=== PATIENT | male | born 1980 | race Caucasian/White ===

== ENCOUNTER 2022-02-23 12:46 | Observation (INO) | payer MEDICARE, SELFPAY ==
[2022-02-23] VITALS (14 sets, daily range): BP systolic 100–136; BP diastolic 61–88; PULSE 47–78; RESP 12–21; TEMP 36.5–36.7; O2SAT 95–99; BMI 20.3
--- NOTE | 2022-02-23 12:53 | ECG_ITS ---
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 Measurements Intervals [place] Rate: 50 P: 79 AR: 156 QRS: 78 QRSD: 82 T: 78 QT: 428 QTc: 391 Interpretive Statements SINUS BRADYCARDIA No previous ECG available for comparison Electronically Signed On 02-23-2022 18:33:29 CDT by Delvis Fuentes M.D. [id number]
--- NOTE | 2022-02-23 12:53 | XRR_ITS ---
PROCEDURE INFORMATION: Exam: XR Chest Exam date and time: 02/23/2022 1:07 PM Age: 42 years old Clinical indication: Pain; Angina pectoris; Prior surgery; Surgery type: Stents; Additional info: Chest pain TECHNIQUE: Imaging protocol: Radiologic exam of the chest. Views: 1 view. Other technique: Frontal portable upright view of the chest. COMPARISON: No relevant prior studies available. FINDINGS: Tubes, catheters and devices: EKG leads are present overlying the chest. Lungs: Mild pulmonary hyperexpansion. The lungs are otherwise peripherally clear bilaterally. The pulmonary vasculature is normal. Pleural spaces: No pleural effusion. No pneumothorax. Heart/Mediastinum: The heart is normal in size and contour. Bones/joints: No acute abnormality identified. XR/XR chest 1V portable [id number] IMPRESSION: Mild pulmonary hyperexpansion.
--- NOTE | 2022-02-23 12:56 | ED_ITS ---
HPI - Chest Pain General: Chief Complaint: Chest Pain Stated Complaint: CHEST PAIN Time Seen by Provider: 02/23/22 12:48 History of Present Illness: 42-year-old male presents with chest pain. Patient reports that it started yesterday and then worsened throughout the night. He feels like he is got some a set on his chest. These got pain rating to his left arm. Some mild shortness of breath. Patient reports that about 4 years ago he had 2 stents placed. He moved [place] proximally 3 weeks ago. And has not established care. Patient does not currently take any medications. In route EMS provided him aspirin and 3 nitro. He reports his pain went from a 10 to a 3 with a nitro. Associated symptoms: Deny abdominal pain, dyspnea, fever(s), nausea, palpitations or vomiting Review of Systems Const: Denies: fever(s) or chills Eyes: Denies: change in vision or blurry vision ENMT: Denies: throat pain or ear or mastoid pain Card: Reports: chest pain; Denies: palpitations, irregular heart rhythm or lightheadedness Resp: Denies: dyspnea or productive cough GI: Denies: abdominal pain, nausea or vomiting : Denies: flank pain, difficulty urinating or dysuria Musc: Reports: other (Please see HPI) Skin/Breast: Denies: rash or pruritus PFSH ED PFSH: Medical History (Updated 02/23/22 @ 17:31 by Alysha Sousa MD) CAD (coronary artery disease) Physical Exam Const: COMMON NORMALS: no acute distress, patient oriented x3 and no limitations HENMT: COMMON NORMALS: normocephalic, hearing grossly normal bilaterally and moist oral mucous membranes HEAD & SCALP: normocephalic Eye: COMMON NORMALS: Equal, round and reactive pupils present and EOMs intact bilaterally PUPIL: Yes Equal, round and reactive pupils present Resp: COMMON NORMALS: normal respiratory effort, No use of accessory muscles and clear to auscultation bilaterally AUSCULTATION: clear to auscultation rey aterally Cardio: COMMON NORMALS: regular rate and regular rhythm RATE: regular rate RHYTHM: regular rhythm GI: COMMON NORMALS: Normal to inspection, nondistended, normoactive bowel sounds present, Soft to palpation and No hepatosplenomegaly present PALPATION: Yes Soft to palpation and Yes No hepatosplenomegaly present Extremity: COMMON NORMALS: normal to inspection and full ROM Neuro: COMMON NORMALS: patient oriented x3, moves all extremities and no focal motor deficits Psych: COMMON NORMALS: mental status grossly normal, Normal thought process present, cooperative and speech normal SPEECH: Yes normal speech THOUGHT PROCESS: Normal thought process present Course Vital Signs: Vital signs: Vital Signs Temperature 97.7 F 02/23/22 12:50 Pulse Rate 53 L 02/23/22 17:00 Respiratory Rate 16 02/23/22 17:33 Blood Pressure 119/67 02/23/22 17:00 Pulse Oximetry 95 02/23/22 17:00 Oxygen Delivery Me thod 02/23/22 17:00 MDM - Chest Pain Medical Decision Making Patient reports that his chest pain is coming and going is very similar to his previous time he needed stents. Discussed with Dr. Underwood who felt he would isrrael efit from admission and stress test in the morning. Discussed with Dr. Sousa who agreed to admission Lab Data : 02/23/22 13:00 02/23/22 13:00 Radiology Impressions Chest X-Ray 02/23/22 12:53 IMPRESSION: Mild pulmonary hyperexpansion. Laboratory Results WBC 9.8 10^3/uL (4.0-10.0) 02/23/22 13:00 RBC 4.85 10^6/uL (4.1-5.3) 02/23/22 13:00 Hgb 15.3 g/dL (11.7-16.6) 02/23/22 13:00 Hct 45.6 % (42.0-52.0) 02/23/22 13:00 MCV 94.0 fl (80-94) 02/23/22 13:00 MCH 31.5 pg (28.0-34.0) 02/23/22 13:00 MCHC 33.6 g/dL (30.0-36.0) 02/23/22 13:00 RDW 13.1 % (12.1-15.1) 02/23/22 13:00 Plt Count 314 10^3/cmm (130-400) 02/23/22 13:00 MPV 9.9 fL (7.4-10.4) 02/23/22 13:00 Neut % (Auto) 68.7 % 02/23/22 13:00 Lymph % (Auto) 19.4 % 02/23/22 13:00 [place] % (Auto) 6.8 % 02/23/22 13:00 Eos % (Auto) 3.7 % 02/23/22 13:00 Baso % (Auto) 0.9 % 02/23/22 13:00 Neut # (Auto) 6.70 10^3/uL (1.8-7.7) 02/23/22 13:00 Lymph # (Auto) 1.9 10^3/uL (0.8-4.8) 02/23/22 13:00 [place] # (Auto) 0.7 10^3/uL (0.2-0.9) 02/23/22 13:00 Eos # (Auto) 0.4 10^3/uL (0.0-0.8) 02/23/22 13:00 Baso # (Auto) 0.1 10^3/uL (0.0-0.1) 02/23/22 13:00 Nucleated RBC % (auto) 0 % 02/23/22 13:00 Nucleated RBCs # 0.0 /100WBC 02/23/22 13:00 Sodium 139 mmol/L (136-145) 02/23/22 13:00 Potassium 3.9 mmol/L (3.5-5.1) 02/23/22 13:00 Chloride 103 mmol/L (98-107) 02/23/22 13:00 Carbon Dioxide 24 mmol/L (22-29) 02/23/22 13:00 Anion Gap 15.9 (5-19) 02/23/22 13:00 BUN 11 mg/dL (6-20) 02/23/22 13:00 Creatinine 0.6 mg/dL (0.7-1.2) L 02/23/22 13:00 GFR Calculation 147.0 mL/min (90-130) H 02/23/22 13:00 Glucose 105 mg/dL (65-115) 02/23/22 13:00 Calculated Osmolality 288 mOsm/kg (285-295) 02/23/22 13:00 Calcium 9.1 mg/dL (8.5-10.5) 02/23/22 13:00 Total Bilirubin 0.9 mg/dL (0.15-1.2) 02/23/22 13:00 AST 16 U/L (0-40) 02/23/22 13:00 ALT 14 U/L (0-41) 02/23/22 13:00 Alkaline Phosphatase 100 U/L (40-130) 02/23/22 13:00 Troponin T Baseline 6 ng/L (0-15) 02/23/22 13:00 Troponin T 120 Minute 6.00 ng/L (0-15) 02/23/22 14:57 Delta Troponin T 0 ABS# (0-10) 02/23/22 14:57 NT-Pro-B Natriuret Pep 50 pg/mL (0-125) 02/23/22 13:00 Total Protein 6.9 g/dL (6.6-8.7) 02/23/22 13:00 Albumin 4.3 g/dL (3.5-5.2) 02/23/22 13:00 Globulin 2.6 g/dL (1.3-4.6) 02/23/22 13:00 EKG Data EKG 1: I personally reviewed and interpreted this EKG as follows: EKG interpretation date: 02/23/22 EKG interpretation time: 13:25 Interpretation: Sinus bradycardia, heart rate 50, IA 156, QRS 82, no ST or T wave changes EKG 2: I personally reviewed and interpreted this EKG as follows: EKG interpretation date: 02/23/22 EKG interpretation time: 15:29 Interpretation: Sinus bradycardia, heart rate 50, IA 153, QRS 84, no acute ST changes or elevation. Similar to previous EKG EKG 3: I personally reviewed and interpreted this EKG as follows: EKG interpretation date: 02/23/22 EKG interpretation time: 17:27 Interpretation: Sinus bradycardia, heart rate 47, IA 154, QRS 85, no acute ST or T wave changes, unchanged from previous 2 EKGs. Discharge Plan Discharge Patient Disposition: Placed in Observation Clinical Impression: Unstable angina pectoris Coding Level of Care Code ED Dean Of Women for Raoul Fwd Exam Comprehensive
[2022-02-23 13:14] LABS: Basophils # 0.1 10^3/uL (0.0-0.1); Basophils % 0.9 %; Eosinophils # 0.4 10^3/uL (0.0-0.8); Eosinophils % 3.7 %; Hematocrit 45.6 % (42.0-52.0); Hemoglobin 15.3 g/dL (11.7-16.6); Lymphocytes # 1.9 10^3/uL (0.8-4.8); Lymphocytes % 19.4 %; Mean Corpuscular HGB Conc 33.6 g/dL (30.0-36.0); Mean Corpuscular Hemoglobin 31.5 pg (28.0-34.0); Mean Platelet Volume 9.9 fL (7.4-10.4); Monocytes # 0.7 10^3/uL (0.2-0.9); Monocytes % 6.8 %; Neutrophils % 68.7 %; Nucleated Red Blood Cells % 0 %; Platelet Count 314 10^3/cmm (130-400); Red Blood Count 4.85 10^6/uL (4.1-5.3); Red Cell Distribution Width 13.1 % (12.1-15.1); White Blood Count 9.8 10^3/uL (4.0-10.0)
[2022-02-23 13:40] LABS: Troponin(5th) Baseline 6 ng/L (0-15)
[2022-02-23 13:50] LABS: Alanine Aminotransferase 14 U/L (0-41); Albumin Level 4.3 g/dL (3.5-5.2); Alkaline Phosphatase 100 U/L (40-130); Anion Gap 15.9 (5-19); Aspartate Amino Transferase 16 U/L (0-40); Blood Urea Nitrogen 11 mg/dL (6-20); Calcium 9.1 mg/dL (8.5-10.5); Carbon Dioxide 24 mmol/L (22-29); Chloride 103 mmol/L (98-107); Globulin 2.6 g/dL (1.3-4.6); Glucose 105 mg/dL (65-115); NT Pro B Type Natriuretic Pept 50 pg/mL (0-125); Osmolality Calculated 288 mOsm/kg (285-295); Potassium 3.9 mmol/L (3.5-5.1); Sodium 139 mmol/L (136-145); Total Bilirubin 0.9 mg/dL (0.15-1.2); Total Protein 6.9 g/dL (6.6-8.7)
--- NOTE | 2022-02-23 14:16 | PC.PHAR ---
pt states he hasnt taken any rx or otc medications in months-pt states he moved from [facility] pt states used [facility] [phone] states the filled mobic 15mg daily,ultram 50mg po q6h prn, and gabapentin 300mg 300mg-1200mg hs [facility] states in jul 2019 they filled nitro prn-plavix 75mg daily-imdur 30mg daily and ranexa er 500mg [id number] states his ex use to take care of his medications states he is not sure of the names of what he was taking states his ex wont speak to him
[2022-02-23] MEDS: ketorolac 30 mg/mL INJ 15 MG IVP (14:22)
--- NOTE | 2022-02-23 14:53 | ECG_ITS ---
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 Measurements Intervals [place] Rate: 50 P: 78 NC: 153 QRS: 77 QRSD: 84 T: 75 QT: 447 QTc: 409 Interpretive Statements SINUS BRADYCARDIA Compared to ECG 02/23/2022 13:25:28 No significant changes Electronically Signed On 02-23-2022 18:34:53 CDT by Delvis Fuentes M.D. [id number]
[2022-02-23 15:23] LABS: Troponin 5 2HR Delta 0 ABS# (0-10)
--- NOTE | 2022-02-23 17:20 | ECG_ITS ---
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 Measurements Intervals [place] Rate: 47 P: 77 CT: 154 QRS: 74 QRSD: 85 T: 73 QT: 435 QTc: 385 Interpretive Statements SINUS BRADYCARDIA Compared to ECG 02/23/2022 15:29:23 No significant changes Electronically Signed On 02-23-2022 18:33:04 CDT by Delvis Fuentes M.D. [email or web address].Parking Panda/store/[id number]
--- NOTE | 2022-02-23 17:30 | P.HP_ITS ---
Providers/Chief Complaint Chief Complaint: CHEST PAIN History of Present Illness Néstor Pride is a 42 year old male who has established history of coronary disease 2 stents were placed about 2 years ago at [facility] presented with chief complaint of recurrent chest pain. Patient is stating that he is in a lot of stress lately because of his divorce, he was homeless for last 6 months and recently got an apartment, he and his 20-year-old son now living in that apartment, for last 6 months he has been experiencing recurrent chest pain which has gotten worse in last few weeks he is describing the chest pain as pressure-like sensation radiating towards his left arm, no active emesis, diaphoresis or shortness of breath. He initially attributed his symptoms to stress. He has not taken aspirin since a year because of financial constraints. He is disabled. Smokes 1 pack/day. Occasional drinks alcohol over the weekend. In the ER his troponins are unremarkable, EKG without ischemic or infarctive changes, his chest pain responds very well to nitroglycerin, he stating that at home he takes his crushed nitroglycerin which eased up his pain to some extent however his chest pain would come back after few hours, it would last for about an hour, he has not noticed any relieving or aggravating factor. He thinks this chest pain is similar when he had stents placed 2 years ago. EKG showing sinus bradycardia without QTC prolongation, LVH, upsloping T waves He is stating that he was diagnosed with a lung nodule on left side never had any follow-up work-up, he is endorsing night sweats Review of Systems Const: Reports: night sweats Eyes: Denies: change in vision ENMT: Denies: throat pain Card: Reports: chest pain and dyspnea on exertion Resp: Reports: dyspnea GI: Denies: abdominal pain : Denies: flank pain Musc: Denies: neck pain Skin/Breast: Denies: rash Neuro: Denies: headache(s) Psych: Reports: anxiety Endo: Denies: polyuria [place]/Lymph: Denies: easy bruising All/Imm: Denies: urticaria Medications/Allergies Home Medications Medication Instructions Recorded Confirmed Last Taken Type No Known Home Medications 02/23/22 02/23/22 Unknown History Allergies Allergy/AdvReac Type Severity Reaction Status Date / Time Penicillins Allergy ALGY-Anaphy Verified 02/23/22 14:01 laxis PFSH Acute PFSH: Medical History CAD (coronary artery disease) Smoker Surgical History (Updated 02/23/22 @ 18:25 by Alysha Sousa MD) History of appendectomy Family History (Updated 02/23/22 @ 18:25 by Alysha Sousa MD) Other CAD (coronary artery disease) Social History (Updated 02/23/22 @ 18:25 by Alysha Sousa MD) Smoking and tobacco status: current every day smoker cigarettes [ Other cigarette details: 1 pack/day] Alcohol intake: current Alcohol intake frequency: holidays/special occasions only Substance/Drug Use: never Household members: children Housing: Apartment Vitals/I&O/Wt Last Vital Signs Temp 97.7 F 02/23/22 12:50 Pulse 53 L 02/23/22 17:00 Resp 15 02/23/22 17:00 BP 119/67 02/23/22 17:00 Pulse Ox 95 02/23/22 17:00 O2 Del Method 02/23/22 17:00 Weight last 48 hrs Weight 68.039 kg Physical Exam Narrative: Thin lean male No active chest pain Currently on room air Abdomen soft No signs of edema Very anxious Emotional labile S1, S2 Blood pressure stable Abdomen soft Appropriate affect Data : 02/23/22 13:00 02/23/22 13:00 A&P Assessment and plan (1) Unstable angina pectoris: Status: Acute Plan Unstable angina History of coronary disease Patient stating he had 2 stents placed in [place] 2 years ago He has not taken aspirin in a long time I will go ahead and start aspirin, atorvastatin, low-dose lisinopril Actively smoking 1 pack/day Undergoing a lot of social stress No active chest pain at the time of my evaluation, will do Lexiscan stress test in the morning along echo I did tell the patient that in case of recurrent chest pain we will cancel stress test and call cardiology for an angiogram EKG showing sinus bradycardia troponin not significantly elevated I will obtain CT chest because patient is endorsing night sweats and pulmonary nodule history, he is an active smoker He can eat before midnight N.p.o. afterwards In case of recurrent chest pain would recommend Nitropaste In case of any worsening of symptoms overnight he might need nitroglycerin drip and cardiology consult Full code DVT prophylaxis Lovenox Check drug screen Request records from the overnight hospital Attestations Medical Necessity Statement*: Anticipating discharge within 48 hours for evaluation of unstable angina Time Spent in Patient Care: 40 Coding Level of Care Code Acute Service Advocate Contact for Raoul Hummel Diagnoses Unstable angina pectoris I20.0
--- NOTE | 2022-02-23 17:32 | USCV_ITS ---
Bigg Néstor Age: 42 Gender: M : 1980 Exam Date: 02/23/2022 18:40 Ordering Phys: Alysha Sousa MD Technologist: R[place] Exam Location: [facility] Indication: intermittent chest pain x 3 weeks. History of cardiac stenting 2017. BP: 136 / 88 HR: 46 Rhythm: Sinus bradycardia Technical Quality: Adequate MEASUREMENTS (Male / Female) Normal Values 2D ECHO LV Diastolic Diameter PLAX 4.2 cm 4.2 - 5.9 / 3.9 - 5.3 cm LV Systolic Diameter PLAX 2.5 cm IVS Diastolic Thickness 0.6 cm 0.6 - 1.0 / 0.6 - 0.9 cm IVS Systolic Thickness 1.1 cm LVPW Diastolic Thickness 1.0 cm 0.6 - 1.0 / 0.6 - 0.9 cm LVPW Systolic Thickness 1.3 cm LVOT Diameter 2.1 cm LV Ejection Fraction 2D Teich 69.9 % LV Ejection Fraction MOD 2C 70.0 % LV Ejection Fraction 2C AL 71.8 % LA Diameter 2.9 cm LA Width 2.7 cm LA Height 4.1 cm RA Width 3.7 cm RA Height 4.0 cm Aorta at Sinotubular Diameter 2.8 cm IVC Diameter 1.7 cm M-MODE Aortic Annulus Diameter 3.0 cm LA Ao Ratio MM 0.8 MV E Point Septal Separation 0.6 cm DOPPLER AV Peak Velocity 121.0 cm/s LVOT Peak Velocity 96.0 cm/s AV Area Cont Eq vti 2.7 cm squared AV Area Cont Eq pk 2.7 cm squared MV Area PHT 4.2 cm squared Mitral E to A Ratio 1.9 MV E' Velocity 58.5 cm/s Mitral E to MV E' Ratio 7.1 Mitral E to LV E' Lateral Ratio 7.1 Mitral E to LV E' Septal Ratio 7.1 TR Peak Velocity 237.7 cm/s TR Peak Gradient 22.6 mmHg TV Peak E Velocity 46.0 cm/s Right Atrial Pressure 5.0 mmHg Pulmonary Artery Systolic Pressu 27.6 mmHg PV Peak Velocity 87.0 cm/s RV Acceleration Time 0.1 s RV Ejection Time 0.4 s RV AcT/ET 0.3 FINDINGS Left Ventricle Normal left ventricular size and systolic function, EF 69 %. No regional wall motion abnormalities. Right Ventricle Possibly of normal size and ejection fraction Right Atrium The right atrium is normal in size. Left Atrium The left atrium is normal in size. Mitral Valve No gross abnormalities noted Aortic Valve No gross abnormalities noted Tricuspid Valve Mild tricuspid valve regurgitation. Estimated pulmonary artery peak systolic pressure 28 mmHg Pulmonic Valve No gross abnormalities noted Pericardium Normal pericardium without effusion. Aorta Normal ascending aorta dimension. IVC Normal inferior vena cava. CONCLUSIONS Normal left ventricular size and systolic function, EF 69 %. No regional wall motion abnormalities. Normal cardiac chamber sizes. Mild tricuspid valve regurgitation. Estimated pulmonary artery peak systolic pressure 28 mmHg No intracardiac masses No pericardial effusion. No similar previous studies are available for comparison. Dr Nancy Underwood MD FACC (Electronically Signed) Final Date: 24 February 2022 08:53 S
[2022-02-23] MEDS: fentaNYL 50 mcg/mL INJ 2mL 25 MCG IVP (17:33)
[2022-02-23 17:58] LABS: D Dimer 0.34 ug/mIFEU (0-0.59)
[2022-02-23 18:01] LABS: Chol HDL Ratio 2.69 mg/dL (1.0-5.00); Cholesterol 180 mg/dL (0-200); HDL Cholesterol 67 mg/dL (60-100); LDL Cholesterol Calculated 99 mg/dL (50-129); LDL HDL Ratio 1.48 RATIO (0.00-3.22); Triglycerides 70 mg/dL (0-150)
--- NOTE | 2022-02-23 18:27 | CTR_ITS ---
PROCEDURE INFORMATION: Exam: CTA Chest With Contrast Exam date and time: 02/23/2022 7:37 PM Age: 42 years old Clinical indication: Chest wall pain; Additional info: Chest pain TECHNIQUE: Imaging protocol: Computed tomographic angiography of the chest with contrast. 3D rendering (Not supervised by radiologist): MIP and/or 3D reconstructed images were created by the technologist. Radiation optimization: All CT scans at this facility use at least one of these dose optimization techniques: automated exposure control; mA and/or kV adjustment per patient size (includes targeted exams where dose is matched to clinical indication); or iterative reconstruction. Contrast material: OMNI 350; Contrast volume: 80 ml; Contrast route: INTRAVENOUS (IV); COMPARISON: CR XR chest 1V portable [id number] 02/23/2022 1:07 PM RADIATION DOSE METRICS: Total DLP (mGy-cm): 218.52 FINDINGS: Pulmonary arteries: Normal. No pulmonary emboli. Aorta: Unremarkable. No aortic aneurysm. No aortic dissection. Lungs: Emphysematous changes. Bilateral dependent atelectasis. Pleural spaces: Unremarkable. No pneumothorax. No pleural effusion. Heart: Unremarkable. No cardiomegaly. No pericardial effusion. Lymph nodes: Unremarkable. No enlarged lymph nodes. Kidneys and ureters: Left kidney nonobstructive calyceal stone. Bones/joints: Unremarkable. No acute fracture. Soft tissues: Unremarkable. CT/CT angio chest PE protcl [id number] IMPRESSION: 1. Negative for pulmonary embolus or airspace infiltrate. 2. Left kidney nonobstructive calyceal stone. 3. Emphysematous changes. 4. Bilateral dependent atelectasis.
[2022-02-23] MEDS: enoxaparin 40 mg/0.4 mL Syringe SUBCUT (18:34)
--- NOTE | 2022-02-23 19:00 | PC.NURSE ---
Report from EDEL Arroyo. Room assigned. US at bedside completing echo.
[2022-02-23 19:37] LABS: Troponin 5 6HR Delta 0 ng/L (0-12)
[2022-02-23] MEDS: iohexol 350 mg/mL 100 mL Btl IV (19:44)
[2022-02-23] MEDS: morphine IR 15 mg Tablet PO (20:16)
[2022-02-23] MEDS: nitroglycerin 1 gm/inch oint Pkt 0.5 INCH TOPICAL (20:17)
--- NOTE | 2022-02-23 21:24 | PC.NURSE ---
Addendum entered by Rachael Ruvalcaba RN 02/24/22 02:23: Patient states he has had chest pain on and off for 6 months. Addendum entered by Rachael Ruvalcaba RN 02/23/22 21:32: Patient states that he is a borderline diabetic. Original Note: Patient states that he is wanting to make his Son, Néstor MCKAY. Patient c/o chest pain 8/10 when arriving on floor. After Nitropaste and PO Morphine, pain is now 4/10. Will monitor.
[2022-02-23 21:52] LABS: Estmated Average Glucose 97
[2022-02-23 21:53] LABS: Urine Color Dark Yellow (Yellow)
[2022-02-23 21:54] LABS: Add Urine Microscopic? YES; Bilirubin Urine 1+ (Negative); Blood Urine Neg (Negative); Glucose Urine UA Norm (Normal); Ketones Urine 1+ (Negative); Leukocyte Esterase Urine Negative (Negative); Nitrate Urine Negative (Negative); Protein Urine 1+ (Negative); Urine Appearance Clear (CLEAR); Urobilinogen Urine 4 mg/dL (Negative); pH Urine 6.5 (5-7)
[2022-02-23 21:55] LABS: Add Urine Culture? No; Amphetamines Screen Urine Negative (Negative); Barbiturates Screen Urine Negative (Negative); Benzodiazepines Screen Urine Negative (Negative); Cocaine Screen Urine Negative (Negative); Mucus Urine 3+ /hpf; Opiate Screen Urine Positive (Negative); PCP Screen Urine Negative (Negative); Squamous Epithelial Cell Urine 0-4 /hpf (0-5); THC Screen Urine Positive (Negative)
[2022-02-24] VITALS (28 sets, daily range): BP systolic 96–122; BP diastolic 61–82; PULSE 39–81; RESP 16–24; TEMP 36.4–36.8; O2SAT 94–98
--- NOTE | 2022-02-24 00:38 | PC.NURSE ---
Patient c/o chest pain 11/14. Patient does not appear to be in any distress. VSS. Dr. Wan notified.
--- NOTE | 2022-02-24 00:41 | ECG_ITS ---
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 Measurements Intervals [place] Rate: 42 P: 79 HI: 150 QRS: 76 QRSD: 91 T: 73 QT: 439 QTc: 371 Interpretive Statements SINUS BRADYCARDIA Compared to ECG 02/23/2022 17:27:48 No significant changes Electronically Signed On 02-24-2022 20:39:33 CDT by Nancy Underwood M.D. [email or web address].Engana Ptymemorial hospital at gulfportNextG Networksmercy health clermont hospitalWeifang Pharmaceutical Factory/store/OM/[id number]
[2022-02-24] MEDS: ondansetron 2 mg/ML SDV 2 mL 4 MG IVP ×2 (00:47→08:06)
[2022-02-24] MEDS: morphine 4 mg/mL SDV 1 mL 2 MG IVP ×2 (00:47→05:14)
[2022-02-24 01:23] LABS: Troponin(5th) Baseline 6 ng/L (0-15)
--- NOTE | 2022-02-24 02:41 | ECG_ITS ---
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 Measurements Intervals [place] Rate: 40 P: 76 NV: 163 QRS: 76 QRSD: 91 T: 75 QT: 471 QTc: 387 Interpretive Statements SINUS BRADYCARDIA CRITICAL TEST RESULT Compared to ECG 02/24/2022 01:08:01 No significant changes Electronically Signed On 02-24-2022 20:47:01 CDT by Nancy Underwood M.D. [id number]
[2022-02-24 03:06] LABS: Basophils # 0.1 10^3/uL (0.0-0.1); Basophils % 1.4 %; Eosinophils # 0.5 10^3/uL (0.0-0.8); Eosinophils % 6.1 %; Hematocrit 45.1 % (42.0-52.0); Hemoglobin 14.6 g/dL (11.7-16.6); Lymphocytes # 2.6 10^3/uL (0.8-4.8); Lymphocytes % 33.7 %; Mean Corpuscular HGB Conc 32.4 g/dL (30.0-36.0); Mean Corpuscular Hemoglobin 31.5 pg (28.0-34.0); Mean Corpuscular Volume 97.4 fl (80-94); Monocytes # 0.8 10^3/uL (0.2-0.9); Monocytes % 9.9 %; Neutrophils % 48.5 %; Nucleated Red Blood Cells % 0 %; Platelet Count 267 10^3/cmm (130-400); Red Blood Count 4.63 10^6/uL (4.1-5.3); Red Cell Distribution Width 13.2 % (12.1-15.1); White Blood Count 7.8 10^3/uL (4.0-10.0)
--- NOTE | 2022-02-24 03:21 | PC.NURSE ---
Dr. Wan notified that patient's chest pain at lowest has been 09/14. Notified that H&P states in case of recurrent chest pain we will cancel stress test and call cardiology for an angiogram. Notified of bradycardia on EKG. Notified that stress test injections are typically very early in the AM. Ordered to proceed with stress test.
[2022-02-24 03:45] LABS: Anion Gap 15.8 (5-19); Carbon Dioxide 22 mmol/L (22-29); Chloride 102 mmol/L (98-107); Glomerular Filtration Rate 105.5 mL/min (90-130); Glucose 92 mg/dL (65-115); Osmolality Calculated 282 mOsm/kg (285-295); Potassium 3.8 mmol/L (3.5-5.1); Sodium 136 mmol/L (136-145)
[2022-02-24 03:46] LABS: Troponin 5 2HR Delta 0 ABS# (0-10)
[2022-02-24 03:47] LABS: Blood Urea Nitrogen 14 mg/dL (6-20); Calcium 8.9 mg/dL (8.5-10.5)
[2022-02-24] MEDS: acetaminophen 500 mg Tablet PO (05:15)
--- NOTE | 2022-02-24 06:18 | ECG_ITS ---
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 Measurements Intervals [place] Rate: 39 P: 80 NC: 155 QRS: 76 QRSD: 94 T: 74 QT: 473 QTc: 385 Interpretive Statements SINUS BRADYCARDIA CRITICAL TEST RESULT Compared to ECG 02/24/2022 03:11:05 No significant changes Electronically Signed On 02-24-2022 20:47:13 CDT by Nancy Underwood M.D. [id number]
--- NOTE | 2022-02-24 06:41 | PC.NURSE ---
Dr. Sousa ordered to cancel stress test and stated that he would discuss with patient possible angiogram.
[2022-02-24] MEDS: aspirin 81 mg EC Tablet PO (08:06)
--- NOTE | 2022-02-24 08:11 | ECG_ITS ---
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 Measurements Intervals [place] Rate: 42 P: 72 UT: 162 QRS: 75 QRSD: 90 T: 73 QT: 445 QTc: 375 Interpretive Statements SINUS BRADYCARDIA Compared to ECG 02/24/2022 06:18:39 No significant changes Electronically Signed On 02-24-2022 20:41:15 CDT by Nancy Underwood M.D. [email or web address] health biloxiION Signaturethe bellevue hospitalApricot Trees/store/[id number]
[2022-02-24 08:38] LABS: Troponin 5 6HR Delta 0 ng/L (0-12)
--- NOTE | 2022-02-24 09:30 | P.CONIM_ITS ---
Providers/Reason For Consult Consulting Physician/Specialty*: Delvis Fuentes MD/ Interventional Cardiology Reason for Consult*: Unstable angina Requesting Physician: Dr Sousa Attending Physician: Alysha Sousa MD History of Present Illness History of Present Illness Néstor Pride is a 42 year old male with past medical history of CAD with prior stents, family history of CAD, current smoker who presented to the hospital with 2 to 3 weeks of worsening chest pain. Yesterday the pain got severe and he decided to come to the hospital. It is substernal with radiation to the left a rm. Troponins have not trended up. EKG shows sinus bradycardia with no significant ischemic changes. Echocardiogram shows normal LV systolic function Review of Systems Const: Reports: night sweats Eyes: Denies: change in vision ENMT: Denies: throat pain Card: Reports: chest pain and dyspnea on exertion Resp: Reports: dyspnea GI: Denies: abdominal pain : Denies: flank pain Musc: Denies: neck pain Skin/Breast: Denies: rash Neuro: Denies: headache(s) Psych: Reports: anxiety Endo: Denies: polyuria Jameson/Lymph: Denies: easy bruising All/Imm: Denies: urticaria Medications/Allergies Home Medications Medication Instructions Recorded Confirmed Last Taken Type No Known Home Medications 02/23/22 02/23/22 Unknown History Allergies Allergy/AdvReac Type Severity Reaction Status Date / Time Penicillins Allergy ALGY-Anaphy Verified 02/23/22 14:01 laxis Current Medications Generic Name Dose Route Start Last Admin Trade Name Freq PRN Reason Stop Dose Admin Acetaminophen 500 mg 02/23/22 17:31 02/24/22 05:15 Acetaminophen 500 Mg Tablet PO 500 mg Q4H PRN Administration fever Aspirin 81 mg 02/24/22 09:00 02/24/22 08:06 Aspirin 81 Mg Ec Tablet PO 81 mg DAILY IVON Administration Enoxaparin Sodium 40 mg 02/23/22 17:45 02/23/22 18:34 Enoxaparin 40 Mg/0.4 Ml Syringe SUBCUT 40 mg Q24H IVON Administration Morphine Sulfate 2 mg 02/24/22 00:43 02/24/22 05:14 Morphine 4 Mg/Ml Sdv 1 Ml IVP 2 mg Q4H PRN Administration SEVERE PAIN Nitroglycerin 0.5 inch 02/23/22 18:25 02/23/22 20:17 Nitroglycerin 1 Gm/Inch Oint Pkt TOPICAL 0.5 inch ONCE PRN Administration Chest pain Ondansetron HCl 4 mg 02/23/22 17:31 02/24/22 08:06 Ondansetron 2 Mg/Ml Sdv 2 Ml IVP 4 mg Q6H PRN Administration NAUSEA AND VOMITING PFSH Acute PFSH: Medical History CAD (coronary artery disease) Smoker Surgical History History of appendectomy Family History Other CAD (coronary artery disease) Social History Smoking and tobacco status: current every day smoker cigarettes [ Other cigarette details: 1 pack/day] Alcohol intake: current Alcohol intake frequency: holidays/special occasions only Substance/Drug Use: never Household members: children Housing: Apartment Vitals/I&O/Wt Last Vital Signs Temp 98.1 F 02/24/22 06:59 Pulse 56 L 02/24/22 06:59 Resp 20 H 02/24/22 06:59 BP 106/70 02/24/22 06:59 Pulse Ox 97 02/24/22 06:59 O2 Del Method 02/24/22 06:59 02/23/22 02/24/22 02/24/22 22:59 06:59 14:59 Output Total 225 / 225 300 / 525 Balance -225 / -225 -300 / -525 Weight last 48 hrs Weight 150 lb Physical Exam Narrative: GENERAL: Patient is alert, awake and oriented x3. [] NECK: No jugular vein distension. [] HEENT: No cyanosis. No icterus. No pallor. [] HEART: Regular S1 and S2. No murmur, rub or gallop. [] LUNGS: Clear to auscultate bilaterally. [] ABDOMEN: Soft, nontender and nondistended. Positive bowel sounds. No guarding, rebound or tenderness. [] CENTRAL NERVOUS SYSTEM: Grossly nonfocal. [] EXTREMITIES: Lower extremities with no edema bilaterally. Pulses palpable in the lower extremities, both dorsalis pedis and posterior tibial. [] Data : 02/24/22 02:52 02/24/22 02:52 A&P Assessment and plan (1) Unstable angina pectoris: Status: Acute (2) CAD (coronary artery disease): Status: Acute Plan Patient has history of significant CAD with prior stents 3 to 4 years back. Has been having worsening, typical chest pain symptoms during the last 3-4 weeks. In the hospital he has on and off chest pain. We will proceed with coronary angiogram with possible percutaneous coronary intervention. Risks and benefits of the procedure have been discussed with the patient. He understands the risks and benefits and wants to proceed with the procedure. Keep patient NPO. Continue aspirin and statin therapy. Thank you for involving us with care of this patient. We will continue to follow. Please call with questions. Consult Attestations Medical Necessity Statement: Care expected to cross 2 midnights. Coding Level of Care Code Acute Physician [facility] Raoul Hummel Diagnoses Unstable angina pectoris I20.0 CAD (coronary artery disease) I25.10
--- NOTE | 2022-02-24 09:46 | XACV_ITS ---
Exam Room: [facility] Ht: 183 cm Wt: 68 kg BSA: 1.85 m2 Gender: Male : 1980 Any Known Allergies: Penicillins Exam Priority: Routine Procedure(s): Procedure Description: Diagnostic procedure Procedure Description: Left Heart Catheterization Procedure Description: Left ventriculography Procedure Description: Coronary Angiography Diagnostic Cath Status: Urgent Diagnostic Findings * INDICATION: 42 year old male with past medical history of CAD with prior stents, family history of CAD, current smoker who presented to the hospital with 2 to 3 weeks of worsening chest pain. Yesterday the pain got severe and he decided to come to the hospital. It is substernal with radiation to the left arm. Troponins have not trended up. EKG shows sinus bradycardia with no significant ischemic changes. Echocardiogram shows normal LV systolic function. * No disease noted in the Left Main, Left Anterior Descending, Right, or Circumflex coronary arteries. * Coronary angiography shows right dominance. Conclusions 1. No disease noted in the Left Main, Left Anterior Descending, Right, or Circumflex coronary arteries. 2. Normal left ventricular systolic function. Ejection fraction of 60%. Recommendations * Aggressive risk factor modification. * Outpatient cardiology follow up. Interventional RX Recommendation: medical therapy and/or counseling Diagnostic RX Recommendation: medical therapy and/or counseling Ventriculography Ejection Fraction: 60.0 % Pressures Phase:Rest AO : 88 / 68 ( 79 ) @ 11:33:00 AM 80 / 66 ( 73 ) @ 11:36:00 AM 97 / 62 ( 79 ) @ 11:41:00 AM 97 / 64 ( 81 ) @ 11:41:00 AM LV : 116 / -3 / 17 @ 11:39:00 AM 123 / -1 / 19 @ 11:40:00 AM 126 / -3 / 20 @ 11:41:00 AM Valves Phase:DefaultPhase AV : 28.0 @ 10:46:36 AM AV Mean Gradient: 15.0 @ 10:46:36 AM Clinical Evaluation EBL: 5mL-10mL Procedural Details Procedure Consent Obtained. Current Diagnosis : Chest Pain. Pre-Procedure Time Out. Identified patient by full name and date of as verbalized by the patient/guarantor. Does the consent match the physician's order: Yes. Accurate & Complete Informed Consent: Yes. Inpatient/Outpatient History & Physical on Chart: Yes. If H&P is completed, is and addenduem needed: No; If yes, is the addendum complete: N/A. Visualize and Verify Site with Patient/Guarantor: N/A. Relevant Radiology Images available: Yes. Pre-op teaching completed and patient verbalized understanding. The risks, benefits, and alternatives of sedation and/or procedure were discussed by physician. The patient agrees to continue. Procedure started. [facility] Clinical Fraility Score: 3: Managing Well. Kitchen Manager Indications: ACS > 24 hours. Chest Pain Symptom Assessment: Atypical Angina. Correct patient, site and procedure confirmed by cath team. Current diagnosis: Chest Pain. PERRLA. Strong, equal hand contact center professional bilaterally. Lungs clear x 5 lobes. IV Site on Arrival: 18 gauge in the left anticubital. IV Fluids: 0.9% NaCl at KVO. 0 mL infused prior to microbiological laboratory technician. Pre Procedural Pulses: right radial was 3+. Oxygen started at 2liters/min via nasal canula. right groin was prepped with chloroprep then draped in the usual sterile fashion. right radial was prepped with chloroprep then draped in the usual sterile fashion. Baseline sample Acquired. HR: 0 BPM. Physician arrived. Physician scrubbed in. Immediate Pre-Procedure Time Out. Correct Patient: Yes; Correct Procedure: Yes; Correct Site: Yes; Correct Patient Position: Yes; Correct Supplies: Yes; Dried Flammable Prep: Yes; Blood Products Available: N/A;. Lidocaine 1% infiltrated to the right radial. Arterial access obtained. Contrast hand injected through the radial sheath. A 5 australian TIG catheter in over wire. Multiple views taken of left coronary artery. Catheter redirected to the RCA. Multiple views taken of right coronary artery. Catheter removed over the exchange wire. A 5 australian Angled Pig catheter in over wire. EDP Sample taken: LV 116/-4,17; HR: 58 BPM; SpO2: 95%. LV gram performed in [place] @ 10 mL/second for a total of 30 mL. EDP Sample taken: LV 123/-2,19; HR: 69 BPM; SpO2: 94%. Pullback taken: LV 126/-4,20; AO 97/62(79); Mean: 15mmHg, Peak to Peak: 28mmHg, SEP: 18sec/min; HR: 62 BPM; SpO2: 95%. Catheter removed over the exchange wire. Physician scrubbed out. Vital chart was stopped. A TR Band was successful obtaining hemostatsis at the Right Radial artery insertion site. Post Procedure: Pulses reassessed and unchanged. PERRLA. Strong, equal hand contact center professional bilaterally. No VTE prophylaxis required. Total IV fluids: 50 mL. Medication's Wasted: Lidocaine 1% = 2 mL. Medication's Wasted: Nitro = 49.8 mg. Medication's Wasted: Heparin = 1000 units. Complications: None. Estimated blood loss: 5mL-10mL. Responsiveness - Normal response to verbal stimuli; alert and oriented, PERRLA. Airway - Unaffected, no intervention required; spontaneous ventilation. Circulation: W/N/L, pulses unchanged. Nausea/Vomiting: No. Procedure completed. Patient transferred by wheelchair to [facility]. Access Site Site: Right Radial artery Sheath Size: 6 Fr Hemostasis Method: TR Band Hemostasis Success: Successful Procedure Medications Start: 10:19 AM Stop: 10:19 AM Medication: Versed Amount: 1 mg Route: I.V. Start: 10:20 AM Stop: 10:20 AM Medication: Fentanyl Amount: 50 mcg Route: I.V. Start: 10:26 AM Stop: : AM Medication: Versed Amount: 1 mg Route: I.V. Start: 10: AM Stop: : AM Medication: Fentanyl Amount: 50 mcg Route: I.V. Start: 10: AM Stop: : AM Medication: Nitrogylcerin Amount: 200 mcg Route: I.A. Start: 10: AM Stop: : AM Medication: Versed Amount: 1 mg Route: I.V. Start: : AM Stop: : AM Medication: Fentanyl Amount: 50 mcg Route: I.V. Start: : AM Stop: : AM Medication: Heparin Amount: 5000 units Route: I.V. I, the attending physician, have reviewed and verified all procedure medications. Yes, all medications given per verbal order History/Risk Factors Hypertension: No Dyslipidemia: No Peripheral Arterial Disease (PAD): No Myocardial Infarction ([place]): No Obesity: No Renal Disease: No Tobacco Use: Current/Recent(w/in 1 year) Prior Interventions PCI: No CABG: No Valve Surgery: No Report Signatures Finalized by Delvis Fuentes MD on 03/07/2022 11:31 PM
--- NOTE | 2022-02-24 10:24 | W.PM.OPSUD ---
Surgery/Procedure H&P Update DATE OF PROCEDURE: February 24, 2022 DATE H&P PERFORMED: 02/24/22 H&P UPDATE INFORMATION: I have reviewed H&P completed within last 30 days, I have examined patient prior to procedure and No changes to prior documentation PREOP DIAGNOSIS: Unstable angina PRIMARY INDICATION FOR PROCEDURE: Unstable angina PLANNED PROCEDURE: Left heart cath with possible percutaneous coronary intervention PATIENT REASSESSED PRIOR TO SEDATION, WITH NO CHANGE NOTED: Yes PHYSICAL EXAM: alert, oriented x 3, clear to auscultation bilaterally and regular rate & rhythm AIRWAY EVAL/ANESTHESIA PLAN: ASA III, Local Anesthesia, Risks, benefits & alternatives of sedation and/or procedure discussed and Patient agrees to continue as planned ADDITIONAL INFORMATION: Moderate sedation
--- NOTE | 2022-02-24 11:09 | PM.MISC ---
Miscellaneous Note Purpose of Documentation: Brief procedure note Note: Left heart cath: No significant disease noted in the left main, LAD, LCX or RCA PLAN: Aggressive medical therapy. Can start low dose imdur
--- NOTE | 2022-02-24 11:38 | P.PN_ITS ---
Subjective Subjective: Coronary angiogram Patient was complaining of dull pain stress test was canceled, Dr. Fuentes saw him and took him for the angiogram right away Vitals/I&O/Wt Last Vital Signs Temp 98.2 F 02/24/22 11:19 Pulse 45 L 02/24/22 11:19 Resp 18 02/24/22 11:19 BP 106/65 02/24/22 11:19 Pulse Ox 96 02/24/22 11:19 O2 Del Method 02/24/22 11:19 02/23/22 02/24/22 02/24/22 22:59 06:59 14:59 Output Total 225 / 225 300 / 525 Balance -225 / -225 -300 / -525 Weight last 48 hrs Weight 68.039 kg Physical Exam Narrative: Awake and alert S1, S2 Abdomen soft Currently on room air Dull pain 5/10 EOMI, PERRLA Data : 02/24/22 02:52 02/24/22 02:52 A&P Assessment and plan (1) CAD (coronary artery disease): Status: Acute (2) Unstable angina pectoris: Status: Acute Plan Normal coronary angiogram This could be related to spastic episodes that he has been experiencing dull pain I would monitor him 1 more day, add Imdur low-dose He still bradycardic Avoid nitrates or morphine for now Plan to discharge him tomorrow Full code Cardiac diet DVT prophylaxis on board We will add escitalopram Attestations Medical Necessity Statement*: Discharge tomorrow Time Spent in Patient Care: 40 Coding Level of Care Code Acute Geotechnical Engineering Technician for Raoul Hummel Diagnoses CAD (coronary artery disease) I25.10 Unstable angina pectoris I20.0
--- NOTE | 2022-02-24 13:26 | PC.CHAP ---
Pastoral Care Encounter/Spiritual Assessment Type of Contact [] Declined licensed insurance agent visit [] Patient/Family/Request visit [] Outpatient visit [] Follow-up visit [] Physician referral [] Code/Alert [x] Routine visit [] Staff referral [] Actively dying [] Patient sleeping [] Family support [] [] Out of room [] Palliative care [] [] Receiving care in room [] Pre-surgical visit [] Trauma [] Long length of stay [] ICU visit [] Other: Relational/Emotional Strength [x] Patient feels connected with others/family/visitors/staff [x] Distress []x Loneliness/isolation [] Abandonment Spirituality of Patient [x] Person of Gabby [] Attends Mandaeism of their [place] [x] Believes in Prayer [] Reads Bible or Hinduism materials [] There are Spiritual issues to be addressed Financial Coach Interventions [x] Prayer [] Active listening [] Non-anxious presence [] Spiritual/emotional support [] Crisis/trauma care [x] Spiritual counseling [] Bereavement support [] Provided bereavement packet [] Provided Bible/devotional materials [] Provided toy/stuffed animal, coloring book to patient or family member [] Provided Communion [] Anointing/[place] [] Salvation [] Completed spiritual assessment [] Other: Impact on Illness or Injury [] Angry [x] Fearful [] Anxious [] Often cries [] Exhaustion [] Unable to work [] Unable to attend hindu [] Unable to walk/stand [] Unable to read [] Unable to drive [] Unable to eat/drink [] Unable to sleep [] Unable to be with family [] Patient intubated [] Other: Summary Time spent with patient 15 min
--- NOTE | 2022-02-24 15:38 | ECG_ITS ---
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 Measurements Intervals [place] Rate: 42 P: 76 RI: 154 QRS: 73 QRSD: 87 T: 68 QT: 437 QTc: 368 Interpretive Statements SINUS BRADYCARDIA Compared to ECG 02/24/2022 08:11:48 No significant changes Electronically Signed On 02-24-2022 20:50:28 CDT by Nancy Underwood M.D. [id number]
[2022-02-24] MEDS: ketorolac 30 mg/mL INJ 15 MG IVP (16:55)
[2022-02-24] MEDS: morphine 4 mg/mL SDV 1 mL 1 MG IVP (19:50)
[2022-02-25] VITALS: BP 106/68; PULSE 47; RESP 18; TEMP 37.1; O2SAT 97
--- NOTE | 2022-02-25 03:20 | PC.NURSE ---
Patient observed to have worsening chest pain with movement, deep breathing and laughing. No indication of pain with rest. Patient heart rate decreases to low to mid 40s with sleep. Will continue to monitor.
[2022-02-25 04:00] VITALS: BP 100/58; PULSE 52; RESP 20; TEMP 36.3; O2SAT 96
[2022-02-25 05:39] VITALS: PULSE 44
[2022-02-25 08:00] VITALS: BP 136/91; PULSE 58; PULSE 60; RESP 16; O2SAT 97; O2SAT 98
[2022-02-25] MEDS: sennosides-docusate Tablet 1 TAB PO (08:03)
[2022-02-25] MEDS: aspirin 81 mg EC Tablet PO (08:03)
--- NOTE | 2022-02-25 08:16 | PM.DCS ---
Discharge Providers Date of Admission: 02/23/22 17:36 Date of Discharge: February 25, 2022 Attending Provider at Admission: Alysha Sousa MD Attending Provider at Discharge: Alysha Sousa MD Diagnoses at Discharge Discharge Diagnosis (1) CAD (coronary artery disease): Status: Acute (2) Unstable angina pectoris: Status: Acute Reason for Visit Reason for Visit: CHEST PAIN Hospital Course Hospital Course 42 YO male who was admitted for management of unstable angina. His chest pain was typical and he endorsed history of stent placement about 2 years ago in [place]. Cardiology was consulted for his persistent chest pain, he went for coronary angiogram on 02/24, there were no signs of stent placement or any significant stenosis, his symptoms were likely noncardiac in nature. Patient became bradycardic with frequent doses of opioids. I did tell him that there is high risk of overdose hence opiates were discontinued and then he wanted to leave AMA. However he agreed to stay. He is undergoing a lot of social stress at this point we did discuss the possibility of vasospastic angina and stress related symptoms. I have prescribed him aspirin, atorvastatin and Imdur low-dose. At the time of discharge his heart rate is 60 blood pressure is stable he is awake and alert. He is an active smoker, drug screen positive for marijuana. Echo is unremarkable EKG without ischemic or infarctive changes, multiple EKGs were done because of bradycardia showed sinus bradycardia no signs of AV block CT scan of chest did not show any pulmonary nodules that he endorsed. Physical Exam Narrative: S1, S2 Hemodynamically stable Edema PERRLA Currently on room air Looks euvolemic Discharge Data Studies Completed and Pending Completed Studies During Hospitalization Category Date Time Status CTA PE [CT angio chest PE protcl [id number]] Stat Cat Scan 02/23/22 18:27 Completed XR chest 1V portable [id number] Stat Exams 02/23/22 12:53 Completed CV. echo complete* [id number] Routine Ultrasound 02/23/22 17:32 Completed Pending at discharge Category Date Time Status RESTAURANT MAINTENANCE TECHNICIAN request for service Routine Exams 02/24/22 09:46 Taken Sestamibi Stress Test Request Routine Exams 02/23/22 17:32 Stop Req TSH [Thyroid Stimulating Hormone] Stat Lab 02/25/22 08:09 Ordered Radiology Impressions Chest X-Ray 02/23/22 12:53 IMPRESSION: Mild pulmonary hyperexpansion. Chest CTA 02/23/22 18:27 IMPRESSION: 1. Negative for pulmonary embolus or airspace infiltrate. 2. Left kidney nonobstructive calyceal stone. 3. Emphysematous changes. 4. Bilateral dependent atelectasis. Laboratory Results WBC 7.8 10^3/uL (4.0-10.0) 02/24/22 02:52 RBC 4.63 10^6/uL (4.1-5.3) 02/24/22 02:52 Hgb 14.6 g/dL (11.7-16.6) 02/24/22 02:52 Hct 45.1 % (42.0-52.0) 02/24/22 02:52 MCV 97.4 fl (80-94) H 02/24/22 02:52 MCH 31.5 pg (28.0-34.0) 02/24/22 02:52 MCHC 32.4 g/dL (30.0-36.0) 02/24/22 02:52 RDW 13.2 % (12.1-15.1) 02/24/22 02:52 Plt Count 267 10^3/cmm (130-400) 02/24/22 02:52 MPV 10.0 fL (7.4-10.4) 02/24/22 02:52 Neut % (Auto) 48.5 % 02/24/22 02:52 Lymph % (Auto) 33.7 % 02/24/22 02:52 [place] % (Auto) 9.9 % 02/24/22 02:52 Eos % (Auto) 6.1 % 02/24/22 02:52 Baso % (Auto) 1.4 % 02/24/22 02:52 Neut # (Auto) 3.80 10^3/uL (1.8-7.7) 02/24/22 02:52 Lymph # (Auto) 2.6 10^3/uL (0.8-4.8) 02/24/22 02:52 [place] # (Auto) 0.8 10^3/uL (0.2-0.9) 02/24/22 02:52 Eos # (Auto) 0.5 10^3/uL (0.0-0.8) 02/24/22 02:52 Baso # (Auto) 0.1 10^3/uL (0.0-0.1) 02/24/22 02:52 Nucleated RBC % (auto) 0 % 02/24/22 02:52 Nucleated RBCs # 0.0 /100WBC 02/24/22 02:52 D-Dimer 0.34 ug/mIFEU (0-0.59) 02/23/22 13:00 Sodium 136 mmol/L (136-145) 02/24/22 02:52 Potassium 3.8 mmol/L (3.5-5.1) 02/24/22 02:52 Chloride 102 mmol/L (98-107) 02/24/22 02:52 Carbon Dioxide 22 mmol/L (22-29) 02/24/22 02:52 Anion Gap 15.8 (5-19) 02/24/22 02:52 BUN 14 mg/dL (6-20) 02/24/22 02:52 Creatinine 0.8 mg/dL (0.7-1.2) 02/24/22 02:52 GFR Calculation 105.5 mL/min (90-130) 02/24/22 02:52 Glucose 92 mg/dL (65-115) 02/24/22 02:52 Estimat Average Glucose 97 02/23/22 13:00 Hemoglobin A1c 5.0 % (4.0-6.0) 02/23/22 13:00 Calculated Osmolality 282 mOsm/kg (285-295) L 02/24/22 02:52 Calcium 8.9 mg/dL (8.5-10.5) 02/24/22 02:52 Magnesium 2.0 mg/dL (1.7-2.3) 02/24/22 02:52 Total Bilirubin 0.9 mg/dL (0.15-1.2) 02/23/22 13:00 AST 16 U/L (0-40) 02/23/22 13:00 ALT 14 U/L (0-41) 02/23/22 13:00 Alkaline Phosphatase 100 U/L (40-130) 02/23/22 13:00 Troponin T Baseline 6 ng/L (0-15) 02/24/22 00:58 Troponin T 120 Minute 6.00 ng/L (0-15) 02/24/22 02:52 Delta Troponin T 0 ABS# (0-10) 02/24/22 02:52 Troponin T Hi Sens 6Hr 6.00 ng/L (0-15) 02/24/22 07:08 Troponin T Hi Sens 6Hr Delta 0 ng/L (0-12) 02/24/22 07:08 NT-Pro-B Natriuret Pep 50 pg/mL (0-125) 02/23/22 13:00 Total Protein 6.9 g/dL (6.6-8.7) 02/23/22 13:00 Albumin 4.3 g/dL (3.5-5.2) 02/23/22 13:00 Globulin 2.6 g/dL (1.3-4.6) 02/23/22 13:00 Triglycerides 70 mg/dL (0-150) 02/23/22 13:00 Cholesterol 180 mg/dL (0-200) 02/23/22 13:00 LDL Cholesterol, Calc 99 mg/dL (50-129) 02/23/22 13:00 HDL Cholesterol 67 mg/dL (60-100) 02/23/22 13:00 LDL/HDL Ratio 1.48 RATIO (0.00-3.22) 02/23/22 13:00 Cholesterol/HDL Ratio 2.69 mg/dL (1.0-5.00) 02/23/22 13:00 Urine Color Dark yellow (Yellow) 02/23/22 21:30 Urine Appearance Clear (CLEAR) 02/23/22 21:30 Urine pH 6.5 (5-7) 02/23/22 21:30 Ur Specific [place] 1.010 (1.005-1.030) 02/23/22 21:30 Urine Protein 1+ (Negative) H 02/23/22 21:30 Urine Glucose (UA) Norm (Normal) 02/23/22 21:30 Urine Ketones 1+ (Negative) H 02/23/22 21:30 Urine Blood Neg (Negative) 02/23/22 21:30 Urine Nitrate Negative (Negative) 02/23/22 21:30 Urine Bilirubin 1+ (Negative) H 02/23/22 21:30 Urine Urobilinogen 4 mg/dL (Negative) H 02/23/22 21:30 Ur Leukocyte Esterase Negative (Negative) 02/23/22 21:30 Urine RBC None /hpf (0-2) 02/23/22 21:30 Urine WBC None /hpf (0-5) 02/23/22 21:30 Ur Squamous Epith Cells 0-4 /hpf (0-5) H 02/23/22 21:30 Amorphous Sediment Not Reportable 02/23/22 21:30 Urine Bacteria None /hpf (NONE) 02/23/22 21:30 Urine Mucus 3+ /hpf 02/23/22 21:30 Urine Opiates Screen Positive ng/mL (Negative) H 02/23/22 21:30 Ur Barbiturates Screen Negative ng/mL (Negative) 02/23/22 21:30 Ur Phencyclidine Scrn Negative ng/mL (Negative) 02/23/22 21:30 Ur Amphetamines Screen Negative ng/mL (Negative) 02/23/22 21:30 U Benzodiazepines Scrn Negative ng/mL (Negative) 02/23/22 21:30 Urine Cocaine Screen Negative ng/mL (Negative) 02/23/22 21:30 U Marijuana (THC) Screen Positive ng/mL (Negative) H 02/23/22 21:30 Vitals Last Vital Signs Temp 97.3 F L 02/25/22 04:00 Pulse 58 L 02/25/22 08:00 Resp 16 02/25/22 08:00 BP 136/91 02/25/22 08:00 Pulse Ox 98 02/25/22 08:00 O2 Del Method 02/24/22 15:14 Discharge Plan Discharge Patient Disposition: Home Condition: Stable Prescriptions: New atorvastatin 40 mg Tablet 40 mg PO DAILY Qty: 90 3RF aspirin 81 mg Tablet,Delayed Release (Dr/Ec) 81 mg PO DAILY Qty: 90 3RF isosorbide mononitrate 10 mg tablet 5 mg PO BID Qty: 120 3RF Rx Instructions: give doses 7 hrs apart escitalopram oxalate 20 mg tablet 20 mg PO DAILY Qty: 60 6RF Discharge Orders: Discharge Order (Routine); Ordered 02/25/22 Ordered By: Alysha Sousa Referrals: Romy Gonzalez FNP [Nurse Practitioner] - 03/03/22 10:00 am Discharge Diet: Cardiac Discharge Activity: Increase activity as tolerated Patient Instructions: Opioid Safety, Post Angiogram Home Care Instructions, Pain Management Discharge Attestations Time Spent in Discharge Care*: less than 30 min Quality Metrics Clinical Quality Measures [ No reported AMI, CVA or VTE this stay] Coding Level of Care Code Acute Chg FW DC note Diagnoses CAD (coronary artery disease) I25.10 Unstable angina pectoris I20.0
--- NOTE | 2022-02-25 09:07 | P.PN_ITS ---
Subjective Subjective: Patient is stable. Coronary angiogram did not reveal significant CAD. Vitals/I&O/Wt Last Vital Signs Temp 97.3 F L 02/25/22 04:00 Pulse 60 02/25/22 08:00 Resp 16 02/25/22 08:00 BP 136/91 02/25/22 08:00 Pulse Ox 97 02/25/22 08:00 O2 Del Method 02/25/22 08:00 02/24/22 02/25/22 02/25/22 22:59 06:59 14:59 Intake Total 360 / 600 Output Total 400 / 400 400 / 800 Balance -40 / 200 -400 / -200 Weight last 48 hrs Weight 150 lb Physical Exam Narrative: GENERAL: Patient is alert, awake and oriented x3. [] NECK: No jugular vein distension. [] HEENT: No cyanosis. No icterus. No pallor. [] HEART: Regular S1 and S2. No murmur, rub or gallop. [] LUNGS: Clear to auscultate bilaterally. [] ABDOMEN: Soft, nontender and nondistended. Positive bowel sounds. No guarding, rebound or tenderness. [] CENTRAL NERVOUS SYSTEM: Grossly nonfocal. [] EXTREMITIES: Lower extremities with no edema bilaterally. Pulses palpable in the lower extremities, both dorsalis pedis and posterior tibial. [] Data : 02/24/22 02:52 02/24/22 02:52 A&P Assessment and plan (1) Chest pain: Status: Acute Plan Patient's coronary angiogram did not reveal significant CAD. Continue aspirin and atorvastatin. Can add Plavix Imdur. Thank you for involving us with care of this patient. Patient is stable for discharge from cardiology standpoint. Please call with questions. Attestations Medical Necessity Statement*: Care expected to cross 2 midnights. 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
[2022-02-25 09:19] LABS: Thyroid Stimulating Hormone 2.52 uIU/mL (0.27-4.20)
[2022-02-25 10:01] VITALS: BP 136/91; PULSE 60; RESP 16; O2SAT 97
--- NOTE | 2022-02-25 10:02 | PC.NURSE ---
Discharge Note Patient discharged to home via private vehicle accompanied by brother/son. Discharge instructions reviewed with patient and/or inbound sales representative. Mobile pharmacy medications and/or prescriptions provided. Belongings/home medications returned.
== END 2022-02-25 08:45 | disposition home or self-care (01) ==
LOC: ER 17:58 → MEDSURG 19:31
PROVIDERS: Family Medicine; Internal Medicine; Admitting Provider Internal Medicine; Emergency Provider Student in an Organized Health Care Education/Training Program; Visit Provider Internal Medicine
DX: I25.110 Atherosclerotic heart disease of native coronary artery with unstable angina pectoris (principal); Z95.5 Presence of coronary angioplasty implant and graft; F17.210 Nicotine dependence, cigarettes, uncomplicated; Z82.49 Family history of ischemic heart disease and other diseases of the circulatory system
CPT/HCPCS: 36415; 71045; 71275; 80048; 80053; 80061; 80306; 81001; 83036; 83735; 83880; 84443; 84484; 85025; 85378; 93005; 93306; 93458; 96360; 96372; 96374; 96375; 96376; 99152; 99153; 99285; C1769; C1887; C1894; G0378; J1644; J1650; J1885; J2250; J2270; J2405; J3010; J3490; J7030; Q9967

== ENCOUNTER 2022-03-11 04:45 | Inpatient (IN) | payer MEDICARE, SELFPAY ==
[2022-03-11] VITALS (27 sets, daily range): BP systolic 91–125; BP diastolic 54–78; PULSE 54–88; RESP 10–26; TEMP 35.9–36.7; O2SAT 94–100; BMI 20.3; BMI 19.8
--- NOTE | 2022-03-11 04:54 | W.ED.OVERDOS ---
HPI - Overdose General: Chief Complaint: Overdose Stated Complaint: Overdose, SI Time Seen by Provider: 03/11/22 04:48 Source: patient and EMS Mode of arrival: EMS Limitations: no limitations History of Present Illness: 42-year-old male who took a handful of pills tonight and has been drinking alcohol and attempt to kill himself. He recently lost a friend and his and has been depressed. Patient is unsure which pills he took he had bottle of atorvastatin Celexa and isosorbide mononitrate. Patient states he did take a handful he is unsure how many pills is happened roughly an hour ago he had sent someone a video of this saying that he did not want to be here in the morning. Review of Systems Const: Denies: fever(s), chills, body aches or change in appetite Eyes: Denies: blurry vision or eye discomfort ENMT: Denies: throat pain or dental pain Card: Denies: chest pain Resp: Denies: dyspnea GI: Reports: nausea and vomiting : Denies: dysuria Musc: Denies: neck pain or back pain Skin/Breast: Denies: rash Neuro: Denies: headache(s) Psych: Reports: depression Jameson/Lymph: Denies: easy bruising All/Imm: Denies: urticaria PFSH ED PFSH: Medical History CAD (coronary artery disease) Smoker Unstable angina pectoris Surgical History History of appendectomy Family History Other CAD (coronary artery disease) Social History Smoking and tobacco status: current every day smoker cigarettes [ Other cigarette details: 1 pack/day] Alcohol intake: current Alcohol intake frequency: holidays/special occasions only Household members: children Housing: Apartment Physical Exam Const: COMMON NORMALS: patient oriented x3 GENERAL APPEARANCE: in distress HENMT: COMMON NORMALS: normocephalic and atraumatic HEAD & SCALP: normocephalic and atraumatic Eye: COMMON NORMALS: Equal, round and reactive pupils present and EOMs intact bilaterally PUPIL: Yes Equal, round and reactive pupils present Neck/C-Spine: COMMON NORMALS: full ROM and supple Chest: COMMONS NORMALS: normal inspection of the chest and normal palpation of entire chest wall Resp: COMMON NORMALS: normal respiratory effort, No retractions, No use of accessory muscles and clear to auscultation bilaterally AUSCULTATION: clear to auscultation bilaterally Cardio: COMMON NORMALS: regular rate, regular rhythm and No murmurs present (Cardio) RATE: regular rate RHYTHM: regular rhythm GI: COMMON NORMALS: Normal to inspection, nondistended, normoactive bowel sounds present, Soft to palpation, non-tender and no masses PALPATION: Yes Soft to palpation Extremity: COMMON NORMALS: normal to inspection and full ROM Neuro: COMMON NORMALS: patient oriented x3, moves all extremities and no focal motor deficits Psych: COMMON NORMALS: mental status grossly normal, Normal thought process present and cooperative THOUGHT PROCESS: Normal thought process present THOUGHT CONTENT: Yes Suicidality present Skin: COMMON NORMALS: no rashes or lesions noted and no wounds GENERAL SKIN EXAM: no rashes or lesions noted Course Vital Signs: Vital signs: Vital Signs Temperature 97.7 F 03/11/22 04:47 Pulse Rate 61 03/11/22 05:16 Respiratory Rate 19 H 03/11/22 05:16 Blood Pressure 112/72 03/11/22 05:16 Pulse Oximetry 94 03/11/22 05:16 Oxygen Delivery Me thod 03/11/22 04:47 MDM - Overdose Medical Decision Making Patient presents here with a suicide attempt by drug overdose he has multiple pill bottles unsure exactly what he took EMS states he did review the video and it appeared to be the citalopram but unsure of the dose and what he actually did take his vital signs here been normal lab works normal will admit to the ICU for further monitoring for clearance before going to the psych lino will consult psychiatry as well. Lab Data : 03/11/22 04:50 03/11/22 04:50 Laboratory Results WBC 13.3 10^3/uL (4.0-10.0) H 03/11/22 04:50 RBC 4.71 10^6/uL (4.1-5.3) 03/11/22 04:50 Hgb 14.9 g/dL (11.7-16.6) 03/11/22 04:50 Hct 43.8 % (42.0-52.0) 03/11/22 04:50 MCV 93.0 fl (80-94) 03/11/22 04:50 MCH 31.6 pg (28.0-34.0) 03/11/22 04:50 MCHC 34.0 g/dL (30.0-36.0) 03/11/22 04:50 RDW 13.0 % (12.1-15.1) 03/11/22 04:50 Plt Count 389 10^3/cmm (130-400) 03/11/22 04:50 MPV 9.9 fL (7.4-10.4) 03/11/22 04:50 Neut % (Auto) 63.4 % 03/11/22 04:50 Lymph % (Auto) 24.1 % 03/11/22 04:50 [place] % (Auto) 6.1 % 03/11/22 04:50 Eos % (Auto) 4.7 % 03/11/22 04:50 Baso % (Auto) 1.1 % 03/11/22 04:50 Neut # (Auto) 8.45 10^3/uL (1.8-7.7) H 03/11/22 04:50 Lymph # (Auto) 3.2 10^3/uL (0.8-4.8) 03/11/22 04:50 [place] # (Auto) 0.8 10^3/uL (0.2-0.9) 03/11/22 04:50 Eos # (Auto) 0.6 10^3/uL (0.0-0.8) 03/11/22 04:50 Baso # (Auto) 0.2 10^3/uL (0.0-0.1) H 03/11/22 04:50 Nucleated RBC % (auto) 0 % 03/11/22 04:50 Nucleated RBCs # 0.0 /100WBC 03/11/22 04:50 Sodium 141 mmol/L (136-145) 03/11/22 04:50 Potassium 3.9 mmol/L (3.5-5.1) 03/11/22 04:50 Chloride 102 mmol/L (98-107) 03/11/22 04:50 Carbon Dioxide 24 mmol/L (22-29) 03/11/22 04:50 Anion Gap 18.9 (5-19) 03/11/22 04:50 BUN 9 mg/dL (6-20) 03/11/22 04:50 Creatinine 0.6 mg/dL (0.7-1.2) L 03/11/22 04:50 GFR Calculation 147.0 mL/min (90-130) H 03/11/22 04:50 Glucose 115 mg/dL (65-115) 03/11/22 04:50 POC Glucose 102 mg/dL (70-110) 03/11/22 05:00 Calculated Osmolality 292 mOsm/kg (285-295) 03/11/22 04:50 Calcium 9.7 mg/dL (8.5-10.5) 03/11/22 04:50 Total Bilirubin 0.2 mg/dL (0.15-1.2) 03/11/22 04:50 AST 12 U/L (0-40) 03/11/22 04:50 ALT 15 U/L (0-41) 03/11/22 04:50 Alkaline Phosphatase 100 U/L (40-130) 03/11/22 04:50 Total Protein 7.0 g/dL (6.6-8.7) 03/11/22 04:50 Albumin 4.4 g/dL (3.5-5.2) 03/11/22 04:50 Globulin 2.6 g/dL (1.3-4.6) 03/11/22 04:50 Salicylates 0.7 mg/dL (3-10) L 03/11/22 04:50 Acetaminophen < 5.0 ug/mL (10-30) L 03/11/22 04:50 Ethyl Alcohol 148 mg/dL (0-10) H 03/11/22 04:50 EKG Data EKG 1: I personally reviewed and interpreted this EKG as follows: EKG interpretation date: 03/11/22 EKG interpretation time: 04:56 Interpretation: nsr hr [address] or t wave abnormalities qrs 82 qtc 394 Critical Care Time Critical Care Time: Critical Care Time: Yes Total Critical Care Time: 35 Attestation: The high probability of a clinically significant, sudden or life threatening deterioration of the patient's overdose system(s) required my full and direct attention, intervention and personal management. The critical care time is as shown. This time is in addition to time spent performing any reported procedures but includes the following: [x] Data and vital sign review and interpretation [x] Patient assessment, examination and intervention [x] Documentation [x] Medication orders and management Discharge Plan Discharge Patient Disposition: Admitted As Inpatient Clinical Impression: Suicide attempt by multiple drug overdose Condition: Stable Coding Level of Care Code ED Manager Embalmer Funeral Director for Raoul Fwd Exam Comprehensive
--- NOTE | 2022-03-11 04:56 | ECG_ITS ---
[facility] Test Date: 2022-03-11 Pat Name: Néstor Pride Department: Room: Gender: Male Strap Maker: : 1980 Requested By: Aryan Corbett Order Number: [id number] Lenin MD: Nancy Underwood M.D. Measurements Intervals [place] Rate: 82 P: 82 KS: 150 QRS: 77 QRSD: 82 T: 76 QT: 355 QTc: 416 Interpretive Statements SINUS RHYTHM Compared to ECG 02/24/2022 16:29:25 Sinus bradycardia no longer present Electronically Signed On 03-11-2022 20:53:49 CDT by Nancy Underwood M.D. [email or web address]
[2022-03-11 04:58] LABS: Basophils # 0.2 10^3/uL (0.0-0.1); Basophils % 1.1 %; Eosinophils # 0.6 10^3/uL (0.0-0.8); Eosinophils % 4.7 %; Hematocrit 43.8 % (42.0-52.0); Hemoglobin 14.9 g/dL (11.7-16.6); Lymphocytes # 3.2 10^3/uL (0.8-4.8); Lymphocytes % 24.1 %; Mean Corpuscular Hemoglobin 31.6 pg (28.0-34.0); Mean Platelet Volume 9.9 fL (7.4-10.4); Monocytes # 0.8 10^3/uL (0.2-0.9); Monocytes % 6.1 %; Neutrophils # 8.45 10^3/uL (1.8-7.7); Neutrophils % 63.4 %; Nucleated Red Blood Cells % 0 %; Platelet Count 389 10^3/cmm (130-400); Red Blood Count 4.71 10^6/uL (4.1-5.3); White Blood Count 13.3 10^3/uL (4.0-10.0)
[2022-03-11] MEDS: lactated ringers 1,000 ML 999 ML IV (05:06)
[2022-03-11] MEDS: ondansetron 2 mg/ML SDV 2 mL 4 MG IVP ×2 (05:06→09:35)
--- NOTE | 2022-03-11 05:13 | PC.NURSE ---
Spoke with poison control, Michelle, Informed her of pt OD. Unknown pills but suspected Escitalopram 20mg per EMS that saw video that pt sent of himself taking the meds. #60 filled on 02/25/22-now has 44. PC stated peak of 4 hrs, but time is unknown, 35hr half life, serotonin toxicity,(fever good indicator). PC states to treat with benzodiazipines and hydration. Dr strickland informed of PC consult.
[2022-03-11 05:20] LABS: Acetaminophen < 5.0 ug/mL (10-30); Alanine Aminotransferase 15 U/L (0-41); Albumin Level 4.4 g/dL (3.5-5.2); Alcohol Level 148 mg/dL (0-10); Alkaline Phosphatase 100 U/L (40-130); Anion Gap 18.9 (5-19); Aspartate Amino Transferase 12 U/L (0-40); Blood Urea Nitrogen 9 mg/dL (6-20); Calcium 9.7 mg/dL (8.5-10.5); Carbon Dioxide 24 mmol/L (22-29); Chloride 102 mmol/L (98-107); Globulin 2.6 g/dL (1.3-4.6); Glucose 115 mg/dL (65-115); Osmolality Calculated 292 mOsm/kg (285-295); Potassium 3.9 mmol/L (3.5-5.1); Salicylate 0.7 mg/dL (3-10); Sodium 141 mmol/L (136-145); Total Bilirubin 0.2 mg/dL (0.15-1.2)
[2022-03-11 05:30] LABS: Glucose Point of Care 102 mg/dL (70-110)
[2022-03-11 06:55] LABS: Amphetamines Screen Urine Negative (Negative); Barbiturates Screen Urine Negative (Negative); Benzodiazepines Screen Urine Negative (Negative); Cocaine Screen Urine Negative (Negative); Opiate Screen Urine Negative (Negative); PCP Screen Urine Negative (Negative); THC Screen Urine Positive (Negative)
--- NOTE | 2022-03-11 07:05 | PC.NURSE ---
Bedside report completed with EDEL Burgess
--- NOTE | 2022-03-11 08:45 | PM.HP ---
Providers/Chief Complaint Admitting Physician: Contreras Thakkar MD Chief Complaint: Overdose, SI History of Present Illness Néstor Pride is a 42 year old male presenting to the emergency department with suicide attempt, by ingesting pills. Patient reports to me that I cannot prove he did it. Apparently posted a video, showing himself taking the pills which appeared to be Celexa. Ingestion reported to be greater than 1 hour prior to arrival to ER. He denies any symptoms currently. He reports no chest pain, shortness of breath, headache, nausea. 96-hour hold was placed in the emergency department, and psychiatry was consulted. Review of Systems General: Reports: 10 or more systems reviewed and unremarkable except in HPI and below Const: Denies: fever(s) or chills Eyes: Denies: change in vision ENMT: Denies: throat pain Card: Denies: chest pain Resp: Denies: dyspnea GI: Denies: abdominal pain, nausea, vomiting, hematochezia or melena : Denies: flank pain Musc: Denies: neck pain Skin/Breast: Denies: rash Neuro: Denies: headache(s) Psych: Denies: anxiety or depression (However ER document suicide attempt) Endo: Denies: polyuria Jameson/Lymph: Denies: easy bruising All/Imm: Denies: urticaria Medications/Allergies Home Medications Medication Instructions Recorded Confirmed Last Taken Type aspirin 81 mg tablet,delayed 81 mg PO DAILY #90 tabs 02/25/22 03/11/22 Unknown Rx release escitalopram oxalate 20 mg tablet 20 mg PO DAILY #60 tabs 02/25/22 03/11/22 Unknown Rx isosorbide mononitrate 10 mg tablet 5 mg PO BID #120 tabs 02/25/22 03/11/22 Unknown Rx atorvastatin 40 mg tablet 40 mg PO BEDTIME 03/11/22 03/11/22 Unknown History Allergies Allergy/AdvReac Type Severity Reaction Status Date / Time Penicillins Allergy ALGY-Anaphy Verified 02/23/22 14:01 laxis PFSH Acute PFSH: Medical History (Updated 03/11/22 @ 09:42 by Contreras Thakkar MD) CAD (coronary artery disease) Angiogram performed 02/24 demonstrated no disease Smoker Unstable angina pectoris Surgical History History of appendectomy Family History Other CAD (coronary artery disease) Social History Smoking and tobacco status: current every day smoker cigarettes [ Other cigarette details: 1 pack/day] Alcohol intake: current Alcohol intake frequency: holidays/special occasions only Household members: children Housing: Apartment Vitals/I&O/Wt Last Vital Signs Temp 98 F 03/11/22 07:45 Pulse 80 03/11/22 07:45 Resp 25 H 03/11/22 07:45 BP 107/75 03/11/22 07:45 Pulse Ox 97 03/11/22 07:45 O2 Del Method 03/11/22 07:45 03/10/22 03/11/22 03/11/22 22:59 06:59 14:59 Intake Total 1000 / 1000 Output Total 125 / 125 Balance 875 / 875 Weight last 48 hrs Weight 66.497 kg Weight 68.039 kg Physical Exam Narrative: General exam is a white male, denied any complaints HEENT: Atraumatic normocephalic. Oropharynx clear. Dentition poor. Neck is supple no lymphadenopathy thyromegaly Cardiovascular regular rate and rhythm without murmur, no S3 or S4 Lungs clear no wheezing or crackles. Abdomen is soft nontender with positive bowel sounds. No obvious organomegaly exams deferred Extremities no cyanosis clubbing or edema, cap refill brisk Skin no rash Neuro no focal deficits. Data : 03/11/22 04:50 03/11/22 04:50 Other Labs: LFTs are normal Albumin 4.4 Urinalysis positive for marijuana, otherwise negative Acetaminophen level, salicylate level not significant. Alcohol level 148. A&P Assessment and plan (1) Suicide attempt by multiple drug overdose: Patient ingested unknown amount of pills, presumably of Celexa but cannot rule out other ingestion. Continue close monitoring in the emergency department until noon, greater than 6 hours following ingestion. If no evidence of toxidrome/ingestion at that time will be medically stable to move to neuropsychiatric unit. 96-hour hold, one-to-one observation Initiate diet Psychiatric consultation Monitor for withdrawal, alcohol and system at time of presentation. Patient denies regular daily alcohol use. Plan Other medical problems as outlined in past medical history Full code Low risk for DVT Attestations Medical Necessity Statement*: Will need greater than 2 midnight stay for evaluation and treatment of suicide attempt by ingestion. 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
[2022-03-11] MEDS: acetaminophen 325 mg Tablet 650 MG PO (09:32)
--- NOTE | 2022-03-11 10:35 | PC.CHAP ---
Pastoral Care Encounter/Spiritual Assessment Type of Contact [] Declined dispensary attendant visit [] Patient/Family/Request visit [] Outpatient visit [] Follow-up visit [] Physician referral [] Code/Alert [x] Routine visit [] Staff referral [] Actively dying [] Patient sleeping [] Family support [] [] Out of room [] Palliative care [] [] Receiving care in room [] Pre-surgical visit [] Trauma [] Long length of stay [x] ICU visit [x] Other: sitter/ PT had headache.... prayed outside room... advise PT in advance Relational/Emotional Strength [] Patient feels connected with others/family/visitors/staff [] Distress [] Loneliness/isolation [] Abandonment Spirituality of Patient [] Person of [place] [] Attends Jain of their [place] [] Believes in Prayer [] Reads Bible or Tenriism materials [] There are Spiritual issues to be addressed Serger Interventions [x] Prayer [] Active listening [] Non-anxious presence [] Spiritual/emotional support [] Crisis/trauma care [] Spiritual counseling [] Bereavement support [] Provided bereavement packet [] Provided Bible/devotional materials [] Provided toy/stuffed animal, coloring book to patient or family member [] Provided Communion [] Anointing/[place] [] Salvation [x] Completed spiritual assessment [] Other: Impact on Illness or Injury [] Angry [] Fearful [] Anxious [] Often cries [] Exhaustion [] Unable to work [] Unable to attend jehovah's witness [] Unable to walk/stand [] Unable to read [] Unable to drive [] Unable to eat/drink [] Unable to sleep [] Unable to be with family [] Patient intubated [] Other: Summary Time spent with patient
--- NOTE | 2022-03-11 14:15 | PC.NURSE ---
Report called to NPU for bed 153-1. Report given to Gaby. Pt transferred to NPU via W/C with door to door selling distributor. HIs personnel belongings and home meds given to receiving nurse.
--- NOTE | 2022-03-11 15:33 | W.PM.NPUH&PS ---
Providers/Chief Complaint Admitting Physician: Jonathan Mckeon MD Chief Complaint: Overdose, SI HPI NPU History of Present Illness Néstor Pride is a 42 year old male who was admitted involuntarily after he presented with to the emergency department with an apparent posting of the video indicating that he had taken pills with suicidal intent. The patient was admitted to the intensive care unit and was cleared of a sinus bradycardia with no clear evidence of any toxic consequences to his overdose. Patient was admitted involuntarily to the neuropsychiatric unit for further evaluation and treatment. The patient had indicated that he had taken a couple of pills . He had reported that someone had incorrectly posted this video that apparently had indicated that he wished to no longer be here. The patient had reported that he had been brought here by his 20-year-old son. The patient had indicated that the greeting card writer of this note could not prove anything regarding what he had consumed. He had reported some increased stressors recently including having a family member that was close and he had reported that he had been from his and was in the process of having a divorce. He had also reported that his heart was recently failing him due to stress. Previous records had indicated that the patient had been treated for unstable angina on the past few months and had an established history of coronary artery disease. Patient had admitted to alcohol use stating that he typically drink approximately a case of beer daily without any withdrawal symptoms noted or shakes . Patient minimized any other illicit substances. He minimized any homicidal or suicidal thoughts on interview. Past psychiatric history: He reports no active outpatient treatment or psychotherapy. He reports that he has been hospitalized 2 times in the past in [facility] in the past. Current psychiatric medications: None Medical history: Hypercholesterolemia coronary artery disease history of unspecified chest pain Surgical history: None Allergies: Penicillin Family psychiatric history: Unknown Drug and alcohol history: Reported history of alcohol abuse. Illicit drug history unknown Social history patient lives in [facility] with his 20-year-old son. He was born in [place] and raised by his parents. He had a brother and a sister. His sister had for unspecified reasons. His education is unknown. His employment is unknown. There is no known history of sexual physical or emotional abuse. Legal history is unknown. Meds NPU Home Medications Medication Instructions Recorded Confirmed Last Taken Type aspirin 81 mg tablet,delayed 81 mg PO DAILY #90 tabs 02/25/22 03/11/22 Unknown Rx release escitalopram oxalate 20 mg tablet 20 mg PO DAILY #60 tabs 02/25/22 03/11/22 Unknown Rx isosorbide mononitrate 10 mg tablet 5 mg PO BID #120 tabs 02/25/22 03/11/22 Unknown Rx atorvastatin 40 mg tablet 40 mg PO BEDTIME 03/11/22 03/11/22 Unknown History Allergies Allergy/AdvReac Type Severity Reaction Status Date / Time Penicillins Allergy ALGY-Anaphy Verified 02/23/22 14:01 laxis PFSH NPU PFSH: Medical History (Updated 03/11/22 @ 15:53 by Jonathan Mckeon MD) CAD (coronary artery disease) Angiogram performed 02/24 demonstrated no disease Smoker Unstable angina pectoris Surgical History History of appendectomy Family History Other CAD (coronary artery disease) Social History Smoking and tobacco status: current every day smoker cigarettes [ Other cigarette details: 1 pack/day] Alcohol intake: current Alcohol intake frequency: holidays/special occasions only Household members: children Housing: Apartment Mental Status Exam MSE Comments: The patient is a casually dressed white male with poor hygiene with intense eye contact and no clear evidence of any abnormal involuntary motor movements or tics. His is mood was described as fine. His affect was mood incongruent,highly intense and irritable. He appeared notably agitated during the interview and appeared to be a poor historian. His speech was normal in regards to rate rhythm and prosody. He minimized any homicidal or suicidal ideation. He appeared somewhat paranoid and hostile on interview. There was no clear evidence of any delusional thinking although he was somewhat guarded. His insight was feeble. His judgment was impaired. His impulse control appeared limited at best. Vitals/I&O/Wt Last Vital Signs Temp 98 F 03/11/22 14:26 Pulse 54 L 03/11/22 14:26 Resp 16 03/11/22 14:26 BP 125/72 03/11/22 14:26 Pulse Ox 97 03/11/22 14:26 O2 Del Method 03/11/22 14:28 03/11/22 03/11/22 03/11/22 06:59 14:59 22:59 Intake Total 1000 / 1000 600 / 600 Output Total 125 / 125 250 / 250 Balance 875 / 875 350 / 350 Weight last 48 hrs Weight 66.497 kg Weight 66.497 kg Weight 68.039 kg Data NPU : 03/11/22 04:50 03/11/22 04:50 A&P Assessment and plan (1) Suicide attempt by multiple drug overdose: (2) Depressive disorder: (3) Alcohol abuse: Plan Patient is a 42-year-old white male with a history of alcohol abuse admitted under the influence of alcohol with a blood alcohol level of 179 with overdose with suicidal intent. The patient will continue to require inpatient treatment for further evaluation. 1.? Continue current medications, CIWA protocol for alcohol withdrawal. 2.? Encourage individual, group and milieu therapy 3.? Continue q-15 minute check for safety 4.? Recommend sober living treatment at the highest level of care to which the patient is willing to commit. Involuntary Hold Information 96 Hour Hold: 96 Hour Involuntary Admission: Yes 96 Hour Hold Ending Date: 03/17/22 96 Hour Hold Ending Time: 14:15 Attestations NPU Medical Necessity Statement*: Inpatient hospitalization is medically necessary and the clinically appropriate intervention at this time. We will monitor medications and make changes as indicated. Patient will be in the hospital for over two midnights. Likely length of stay is five to seven days. Coding Level of Care Code New Pt Acute Test Hole Driller for Raoul Hummel Patient Type New History Problem Focused Exam Problem Focused Medical Decision Making Straight Forward Diagnoses Suicide attempt by multiple drug overdose T50.912A Depressive disorder F32.A Alcohol abuse F10.10
[2022-03-11] MEDS: ondansetron 4 MG Tablet PO (18:13)
[2022-03-11] MEDS: ibuprofen 600 mg Tablet PO (18:13)
[2022-03-11] MEDS: atorvastatin 40 mg Tablet PO (20:04)
[2022-03-12 06:00] VITALS: BP 131/76; PULSE 55; RESP 17; TEMP 36.7; O2SAT 98
[2022-03-12] MEDS: multivitamin therapeutic Tablet 1 TAB PO (08:22)
[2022-03-12] MEDS: aspirin 81 mg EC Tablet PO (08:22)
[2022-03-12] MEDS: folic acid 1 mg Tablet PO (08:23)
--- NOTE | 2022-03-12 09:39 | P.NPUPN_ITS ---
Subjective NPU Subjective: Patient is in today reporting that he is doing well. He was very emotional, feeling like he was abandoning his son by being in here. He reports that is mostly misunderstanding and that he simply drank too much which led to all the drama. He is very concerned because he feels like being in here is blocking him from employment options. We discussed the possibility of discharge the next 48 hours but certainly by Wednesday. He continues to deny any need for medications. Mental Status Exam MSE Comments: This is a slender white male in hospital scrubs with adequate grooming and limited eye contact. No abnormal movements except for mild psychomotor agitation. Cooperative with exam in mild to moderate distress. Speech was normal rate and volume. Mood described as fine affect slightly irritable and labile. Thought process organized. Thought content: Patient denied suicidal or homicidal ideation, there were no delusions reported or noted, he denied any auditory or visual hallucinations. Attention and concentration were intact and memory appeared reliable but none were formally tested. He is alert and oriented x3. Insight and judgment appear improving impulse control limited. Vitals/I&O/Wt Last Vital Signs Temp 98.0 F 03/12/22 06:00 Pulse 55 L 03/12/22 06:00 Resp 17 03/12/22 06:00 BP 131/76 03/12/22 06:00 Pulse Ox 98 03/12/22 06:00 O2 Del Method 03/11/22 14:28 03/11/22 03/12/22 03/12/22 22:59 06:59 14:59 Intake Total 400 / 1000 Output Total 250 / 500 Balance 150 / 500 Weight last 48 hrs Weight 66.497 kg Weight 66.497 kg Weight 68.039 kg Data NPU : 03/11/22 04:50 03/11/22 04:50 A&P Assessment and plan (1) Suicide attempt by multiple drug overdose: (2) Depressive disorder: (3) Alcohol abuse: Plan Patient is a 42-year-old white male with a history of alcohol abuse admitted under the influence of alcohol with a blood alcohol level of 179 with overdose with suicidal intent. The patient will continue to require inpatient treatment for further evaluation. 1.? Continue current medications, [facility] protocol for alcohol withdrawal. 2.? Encourage individual, group and milieu therapy 3.? Continue q-15 minute check for safety 4.? Recommend sober living treatment at the highest level of care to which the patient is willing to commit. 5. We will continue to evaluate for safety for discharge under the 96-hour hold protocols. Involuntary Hold Information 96 Hour Hold: 96 Hour Involuntary Admission: Yes 96 Hour Hold Ending Date: 03/17/22 96 Hour Hold Ending Time: 14:15 Attestations NPU Medical Necessity Statement*: Inpatient hospitalization is medically necessary and the clinically appropriate intervention at this time. We will monitor medications and make changes as indicated. Likely length of stay is 1-3 days. Coding Level of Care Code Acute Automotive Parts Clerk for g Fwd Diagnoses Suicide attempt by multiple drug overdose T50.912A Depressive disorder F32.A Alcohol abuse F10.10
[2022-03-12 14:00] VITALS: BP 120/74; PULSE 55; RESP 15; TEMP 37; O2SAT 95
[2022-03-12] MEDS: acetaminophen 325 mg Tablet 650 MG PO (18:09)
[2022-03-12] MEDS: alum-mag-hydroxide-sime 30 mL UDC PO (18:10)
[2022-03-12] MEDS: trazodone 50 mg Tablet PO (20:24)
[2022-03-12] MEDS: atorvastatin 40 mg Tablet PO (20:24)
[2022-03-12 20:45] VITALS: BP 142/65; PULSE 56; RESP 17; TEMP 36.5; O2SAT 98
[2022-03-13 06:00] VITALS: BP 113/67; PULSE 53; RESP 17; TEMP 36.6; O2SAT 95
[2022-03-13] MEDS: folic acid 1 mg Tablet PO (08:36)
[2022-03-13] MEDS: aspirin 81 mg EC Tablet PO (08:36)
[2022-03-13] MEDS: multivitamin therapeutic Tablet 1 TAB PO (08:36)
[2022-03-13] MEDS: nicotine 2 mg Gum BUCCAL (10:24)
[2022-03-13 14:00] VITALS: BP 127/68; PULSE 72; RESP 16; TEMP 36.7; O2SAT 98
--- NOTE | 2022-03-13 15:35 | DCPLANNER ---
Imm was discussed with pt and given.
[2022-03-13] MEDS: ibuprofen 600 mg Tablet PO (17:05)
--- NOTE | 2022-03-13 17:50 | P.NPUPN_ITS ---
Subjective NPU Subjective: Patient presents today reporting that he is fine and not having any withdrawal symptoms. We discussed this technical report writer's concerns and reviewed the 90-hour hold paperwork. He denies any recollection of making statements about killing himself or having overdosed. We discussed the clarity of the affidavit and that it is our top to observe and ensure that he is safe for discharge. He identified that now he supposed to be at work on Wednesday and we discussed the likelihood that that would be possible. Mental Status Exam MSE Comments: This is a slender white male in hospital scrubs with adequate grooming and limited eye contact. No abnormal movements except for mild psychomotor agitation. Cooperative with exam in mild distress. Speech was normal rate and volume. Mood described as fine affect somewhat labile. Thought process organized. Thought content: Patient denied suicidal or homicidal i deation, there were no delusions reported or noted, he denied any auditory or visual hallucinations. Attention and concentration were intact and memory appeared reliable but none were formally tested. He is alert and oriented x3. Insight and judgment appear improving impulse control limited. Vitals/I&O/Wt Last Vital Signs Temp 98.1 F 03/13/22 14:00 Pulse 72 03/13/22 14:00 Resp 16 03/13/22 14:00 BP 127/68 03/13/22 14:00 Pulse Ox 98 03/13/22 14:00 O2 Del Method 03/11/22 14:28 Data NPU : 03/11/22 04:50 03/11/22 04:50 A&P Assessment and plan (1) Suicide attempt by multiple drug overdose: (2) Depressive disorder: (3) Alcohol abuse: Plan Patient is a 42-year-old white male with a history of alcohol abuse admitted under the influence of alcohol with a blood alcohol level of 179 with overdose with suicidal intent. The patient will continue to require inpatient treatment for further evaluation. 1.? Continue current medications, [facility] protocol for alcohol withdrawal. 2.? Encourage individual, group and milieu therapy 3.? Continue q-15 minute check for safety 4.? Recommend sober living treatment at the highest level of care to which the patient is willing to commit. 5. We will continue to evaluate for safety for discharge under the 96-hour hold protocols. Involuntary Hold Information 96 Hour Hold: 96 Hour Involuntary Admission: Yes 96 Hour Hold Ending Date: 03/17/22 96 Hour Hold Ending Time: 14:15 Attestations NPU Medical Necessity Statement*: Inpatient hospitalization is medically necessary and the clinically appropriate intervention at this time. We will monitor me dications and make changes as indicated. Likely length of stay is 1-3 days. Coding Level of Care Code Acute Training And Development Professional for [facility] Fwd Diagnoses Suicide attempt by multiple drug overdose T50.912A Depressive disorder F32.A Alcohol abuse F10.10
[2022-03-13 20:25] VITALS: BP 111/74; PULSE 60; RESP 18; O2SAT 97
[2022-03-13] MEDS: atorvastatin 40 mg Tablet PO (20:40)
[2022-03-13] MEDS: trazodone 50 mg Tablet PO (20:40)
[2022-03-14 06:00] VITALS: BP 117/82; PULSE 66; RESP 18; O2SAT 97
[2022-03-14] MEDS: aspirin 81 mg EC Tablet PO (07:58)
[2022-03-14] MEDS: folic acid 1 mg Tablet PO (07:59)
[2022-03-14] MEDS: multivitamin therapeutic Tablet 1 TAB PO (07:59)
--- NOTE | 2022-03-14 13:17 | W.PM.NPUPNS ---
Subjective NPU Subjective: Patient presents today reporting that he feels much better and continue to focus on not missing this work opportunity. He continues to downplay any emotional issues and continues to report this was essentially bad behavior while drunk. He continues to deny remembering making statements that the emergency room doctor noted in the 96-hour hold. We discussed the likelihood of discharge tomorrow. Mental Status Exam MSE Comments: This is a slender white male in hospital scrubs with adequate grooming and limited eye contact. No abnormal movements except for resolving mild psychomotor agitation. Cooperative with exam in mild distress. Speech was normal rate and volume. Mood described as better, affect somewhat calmer. Thought process organized. Thought content: Patient denied suicidal or homicidal ideation, there were no delusions reported or noted, he denied any auditory or visual hallucinations. Attention and concentration were intact and memory appeared reliable but none were formally tested. He is alert and oriented x3. Insight and judgment appear improving impulse control limited. Vitals/I&O/Wt Last Vital Signs Temp 97.8 F 03/14/22 21:09 Pulse 78 03/14/22 21:09 Resp 17 03/14/22 21:09 BP 124/84 03/14/22 21:09 Pulse Ox 96 03/14/22 21:09 O2 Del Method 03/14/22 06:00 Data NPU : 03/11/22 04:50 03/11/22 04:50 A&P Assessment and plan (1) Suicide attempt by multiple drug overdose: (2) Depressive disorder: (3) Alcohol abuse: Plan Patient is a 42-year-old white male with a history of alcohol abuse admitted under the influence of alcohol with a blood alcohol level of 179 with overdose with suicidal intent. The patient will continue to require inpatient treatment for further evaluation. 1.? Continue current medications, [facility] protocol for alcohol withdrawal. 2.? Encourage individual, group and milieu therapy 3.? Continue q-15 minute check for safety 4.? Recommend sober living treatment at the highest level of care to which the patient is willing to commit. 5. We will continue to evaluate for safety for discharge under the 96-hour hold protocols. Involuntary Hold Information 96 Hour Hold: 96 Hour Involuntary Admission: Yes 96 Hour Hold Ending Date: 03/17/22 96 Hour Hold Ending Time: 14:15 Attestations NPU Medical Necessity Statement*: Inpatient hospitalization is medically necessary and the clinically appropriate intervention at this time. We will monitor medications and make changes as indicated. Tentative plan for discharge tomorrow. Coding Level of Care Code Acute Rn Clinician for [facility] Fwd Diagnoses Suicide attempt by multiple drug overdose T50.912A Depressive disorder F32.A Alcohol abuse F10.10
[2022-03-14 14:00] VITALS: BP 125/74; PULSE 82; RESP 16; TEMP 36.7; O2SAT 96
[2022-03-14] MEDS: ibuprofen 600 mg Tablet PO (18:29)
[2022-03-14] MEDS: atorvastatin 40 mg Tablet PO (20:42)
[2022-03-14] MEDS: acetaminophen 325 mg Tablet 650 MG PO (20:42)
[2022-03-14] MEDS: alum-mag-hydroxide-sime 30 mL UDC PO (20:43)
[2022-03-14] MEDS: trazodone 50 mg Tablet PO (20:43)
[2022-03-14 21:09] VITALS: BP 124/84; PULSE 78; RESP 17; TEMP 36.6; O2SAT 96
[2022-03-15 06:00] VITALS: BP 123/75; PULSE 60; RESP 17; TEMP 36.4; O2SAT 99
[2022-03-15] MEDS: aspirin 81 mg EC Tablet PO (08:19)
[2022-03-15] MEDS: folic acid 1 mg Tablet PO (08:19)
[2022-03-15] MEDS: multivitamin therapeutic Tablet 1 TAB PO (08:19)
[2022-03-15] MEDS: nicotine 21 mg Patch 1 PATCH TRANSDERMA (09:26)
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
--- NOTE | 2022-03-15 11:47 | P.NPUDS_ITS ---
Diagnoses at Discharge Discharge Diagnosis (1) Suicide attempt by multiple drug overdose: Status: Acute (2) Depressive disorder: Status: Acute (3) Alcohol abuse: Status: Acute Reason for Visit Reason for Visit: Overdose, SI Brief History: History of Present Illness Néstor Pride is a 42 year old male who was admitted involuntarily after he presented with to the emergency department with an apparent posting of the video indicating that he had taken pills with suicidal intent. The patient was admitted to the intensive care unit and was cleared of a sinus bradycardia with no clear evidence of any toxic consequences to his overdose. Patient was admitted involuntarily to the neuropsychiatric unit for further evaluation and treatment. The patient had indicated that he had taken a couple of pills . He had reported that someone had incorrectly posted this video that apparently had indicated that he wished to no longer be here. The patient had reported that he had been brought here by his 20-year-old son. The patient had indicated that the typewriters functional tester of this note could not prove anything regarding what he had consumed. He had reported some increased stressors recently including having a family member that was close and he had reported that he had been from his and was in the process of having a divorce. He had also reported that his heart was recently failing him due to stress. Previous records had indicated that the patient had been treated for unstable angina on the past few months and had an established history of coronary artery disease. Patient had admitted to alcohol use stating that he typically drink approximately a case of beer daily without any withdrawal symptoms noted or shakes . Patient minimized any other illicit substances. He minimized any homicidal or suicidal thoughts on interview. Past psychiatric history: He reports no active outpatient treatment or psychotherapy. He reports that he has been hospitalized 2 times in the past in [facility] in the past. Current psychiatric medications: None Medical history: Hypercholesterolemia coronary artery disease history of unspecified chest pain Surgical history: None Allergies: Penicillin Family psychiatric history: Unknown Drug and alcohol history: Reported history of alcohol abuse. Illicit drug history unknown Social history patient lives in [place] [facility] with his 20-year-old son. He was born in [place] and raised by his parents. He had a brother and a sister. His sister had for unspecified reasons. His education is unknown. His employment is unknown. There is no known history of sexual physical or emotional abuse. Legal history is unknown. Hospital Course Hospital Course He slowly acclimated to the individual, group and milieu therapies provided.? He initially struggled acknowledging his behavior that led to the 96-hour hold. He did identify the role that drinking to intoxication played in the situation. We monitor him for safety and got collateral information regarding risk factors in his home. He was not interested in starting any medications. He had marked improvement during his stay. ? He was able to contract for safety outside hospital prior to discharge.? During the hospitalization, patient had routine laboratory studies which were within normal limits except for few outliers.? Additionally there was a general medical evaluation which was also within normal limits and revealed no new acute processes. Discharge Summary: At the time of discharge, he denied psychosis or lethality.? Mood and anxiety were well managed.? Patient endorsed a plan to follow-up with the aftercare recommendations of the treatment team.? Patient was evaluated and deemed to be absent credible lethality, and had achieved the maximum benefit from an inpatient hospitalization, so was discharged. Involuntary Hold Information 96 Hour Hold: 96 Hour Involuntary Admission: Yes 96 Hour Hold Ending Date: 03/17/22 96 Hour Hold Ending Time: 14:15 Mental Status Exam 2 MSE Comments: This is a slender white male in hospital scrubs with adequate grooming and eye contact. No abnormal movements. Cooperative with exam in acute distress. Speech was normal rate and volume. Mood described as better, affect congruent. Thought process organized. Thought content: Patient denied suicidal or homicidal ideation, there were no delusions reported or noted, he denied any auditory or visual hallucinations. Attention and concentration were intact and memory appeared reliable but none were formally tested. He is alert and oriented x3. Insight and judgment appear improving impulse control limited. Discharge Data Studies Completed and Pending: Laboratory Results WBC 13.3 10^3/uL (4.0 -10.0) H 03/11/22 04:50 RBC 4.71 10^6/uL (4.1 -5.3) 03/11/22 04:50 Hgb 14.9 g/dL (11.7-1 6.6) 03/11/22 04:50 Hct 43.8 % (42.0-52.0 ) 03/11/22 04:50 MCV 93.0 fl (80-94) 03/11/22 04:50 MCH 31.6 pg (28.0-34. 0) 03/11/22 04:50 MCHC 34.0 g/dL (30.0-3 6.0) 03/11/22 04:50 RDW 13.0 % (12.1-15.1 ) 03/11/22 04:50 Plt Count 389 10^3/cmm (130 -400) 03/11/22 04:50 MPV 9.9 fL (7.4-10.4) 03/11/22 04:50 Neut % (Auto) 63.4 % 03/11/22 04:50 Lymph % (Auto) 24.1 % 03/11/22 04:50 [place] % (Auto) 6.1 % 03/11/22 04:50 Eos % (Auto) 4.7 % 03/11/22 04:50 Baso % (Auto) 1.1 % 03/11/22 04:50 Neut # (Auto) 8.45 10^3/uL (1.8 -7.7) H 03/11/22 04:50 Lymph # (Auto) 3.2 10^3/uL (0.8- 4.8) 03/11/22 04:50 [place] # (Auto) 0.8 10^3/uL (0.2- 0.9) 03/11/22 04:50 Eos # (Auto) 0.6 10^3/uL (0.0- 0.8) 03/11/22 04:50 Baso # (Auto) 0.2 10^3/uL (0.0- 0.1) H 03/11/22 04:50 Nucleated RBC % (a uto) 0 % 03/11/22 04:50 Nucleated RBCs # 0.0 /100WBC 03/11/22 04:50 Sodium 141 mmol/L (136-1 45) 03/11/22 04:50 Potassium 3.9 mmol/L (3.5-5 .1) 03/11/22 04:50 Chloride 102 mmol/L (98-10 7) 03/11/22 04:50 Carbon Dioxide 24 mmol/L (22-29) 03/11/22 04:50 Anion Gap 18.9 (5-19) 03/11/22 04:50 BUN 9 mg/dL (6-20) 03/11/22 04:50 Creatinine 0.6 mg/dL (0.7-1. 2) L 03/11/22 04:50 GFR Calculation 147.0 mL/min (90- 130) H 03/11/22 04:50 Glucose 115 mg/dL (65-115 ) 03/11/22 04:50 POC Glucose 102 mg/dL (70-110 ) 03/11/22 05:00 Calculated Osmolal ity 292 mOsm/kg (285- 295) 03/11/22 04:50 Calcium 9.7 mg/dL (8.5-10 .5) 03/11/22 04:50 Total Bilirubin 0.2 mg/dL (0.15-1 .2) 03/11/22 04:50 AST 12 U/L (0-40) 03/11/22 04:50 ALT 15 U/L (0-41) 03/11/22 04:50 Alkaline Phosphata se 100 U/L (40-130) 03/11/22 04:50 Total Protein 7.0 g/dL (6.6-8.7 ) 03/11/22 04:50 Albumin 4.4 g/dL (3.5-5.2 ) 03/11/22 04:50 Globulin 2.6 g/dL (1.3-4.6 ) 03/11/22 04:50 Salicylates 0.7 mg/dL (3-10) L 03/11/22 04:50 Urine Opiates Scre en Negative ng/mL (N egative) 03/11/22 06:29 Acetaminophen < 5.0 ug/mL (10-3 0) L 03/11/22 04:50 Ur Barbiturates Sc reen Negative ng/mL (N egative) 03/11/22 06:29 Ur Phencyclidine S crn Negative ng/mL (N egative) 03/11/22 06:29 Ur Amphetamines Sc reen Negative ng/mL (N egative) 03/11/22 06:29 U Benzodiazepines Scrn Negative ng/mL (N egative) 03/11/22 06:29 Urine Cocaine Scre en Negative ng/mL (N egative) 03/11/22 06:29 U Marijuana (THC) Screen Positive ng/mL (N egative) H 03/11/22 06:29 Ethyl Alcohol 148 mg/dL (0-10) H 03/11/22 04:50 Vitals: Last Vital Signs Temp 97.5 F L 03/15/22 06:00 Pulse 60 03/15/22 06:00 Resp 17 03/15/22 06:00 BP 123/75 03/15/22 06:00 Pulse Ox 99 03/15/22 06:00 O2 Del Method 03/14/22 06:00 Discharge Plan Discharge Patient Disposition: Home Condition: Stable Prescriptions: New trazodone 50 mg Tablet 50 mg PO BEDTIME PRN (Reason: Sleep) 30 Days Qty: 30 1RF Continued aspirin 81 mg Tablet,Delayed Release (Dr/Ec) 81 mg PO DAILY Qty: 90 3RF isosorbide mononitrate 10 mg tablet 5 mg PO BID Qty: 120 3RF Rx Instructions: give doses 7 hrs apart escitalopram oxalate 20 mg tablet 20 mg PO DAILY Qty: 60 6RF Changed atorvastatin 40 mg tablet 40 mg PO BEDTIME 30 Days Qty: 30 1RF Discharge Orders: Discharge Order (Routine); Ordered 03/15/22 Ordered By: Junior Castelan Referrals: [facility] [Outside] - 4-7 days (Walk in for initial appointment Wednesday through Wednesday 7:30 am to 3:00 pm. ) Romy Gonzalez FNP [Nurse Practitioner] - 03/19/22 9:40 am (Follow up. ) Discharge Diet: Regular Discharge Activity: Resume usual activity Patient Instructions: Trazodone (By mouth), Abuse of Alcohol (GEN), Suicide Prevention (DC), Opioid Safety Discharge Attestations NPU Time Spent in Discharge Care*: less than 30 min Specific Discharge Activities: Specific discharge activities: educating patient, discussing with child support case officer/social workers/dc planners, documenting/other paperwork and evaluating patient/reviewing data Coding Level of Care Code Acute Chg FW DC note Diagnoses Suicide attempt by multiple drug overdose T50.912A Depressive disorder F32.A Alcohol abuse F10.10
[2022-03-15 11:52] VITALS: BP 123/75; PULSE 60; RESP 17; TEMP 36.4; O2SAT 99
[2022-03-15 12:09] VITALS: BP 123/75; PULSE 60; RESP 17; TEMP 36.4; O2SAT 99
== END 2022-03-15 12:17 | disposition home or self-care (01) | DRG 918 ==
LOC: ER 05:24 → ICU 06:23 → NP 03-12 00:02 → ICU 03-14 00:20
PROVIDERS: Admitting Provider Psychiatry & Neurology Psychiatry; Emergency Provider Emergency Medicine; Visit Provider Internal Medicine
DX: T50.912A Poisoning by multiple unspecified drugs, medicaments and biological substances, intentional self-harm, initial encounter (principal); R45.851 Suicidal ideations; I25.10 Atherosclerotic heart disease of native coronary artery without angina pectoris; F17.210 Nicotine dependence, cigarettes, uncomplicated; F10.10 Alcohol abuse, uncomplicated; E78.00 Pure hypercholesterolemia, unspecified; Z79.82 Long term (current) use of aspirin
CPT/HCPCS: 36416; 80053; 80306; 80307; 82962; 85025; 93005; 96374; 97150; 97165; 99285; J2405; Q0162